=== PATIENT | female | born 1945 | race African-American/Black ===

== ENCOUNTER 2019-02-28 18:34 | Inpatient (IN) | payer MEDICARE ==
[2019-02-28] MEDS ORDERED: NS 0.9% 1000 ML** 1,000 ML IV ONE (19:13)
[2019-02-28] MEDS ORDERED: Acetaminophen TAB* 325 MG PO ONE (19:13)
[2019-02-28] MEDS ORDERED: Haloperidol INJ IV/IM* 5 MG/ML AMP IM ONE (19:14)
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
[2019-02-28] MEDS ORDERED: Haloperidol TAB* 5 MG PO ONE (19:44)
[2019-02-28] MEDS ORDERED: NS 0.9% 1000 ML** 500 ML IV ONE (19:45)
[2019-02-28 20:15] LABS: Urine Appearance Cloudy; Urine Bacteria Absent (Absent); Urine Bilirubin Negative (Negative); Urine Blood 1+ (Negative); Urine Color Yellow; Urine Glucose Negative (Negative); Urine Ketones Trace (Negative); Urine Nitrite Negative (Negative); Urine Protein Negative (Negative); Urine Red Blood Cell Trace(0-2/hpf) (Absent); Urine Specific Gravity 1.024 (1.010-1.030); Urine Squamous Epithelial Cell Present (Absent); Urine Urobilinogen Negative (Negative); Urine White Blood Cell Trace(0-5/hpf) (Absent)
[2019-02-28 20:39] LABS: Activated Partial Thrombo Time 36.6 seconds (26.0-38.0); INR 1.11 (0.82-1.09)
[2019-02-28 20:44] LABS: ABS Lymphocytes 1.1 10^3/ul (1.0-4.8); ABS Monocytes 0.5 10^3/ul (0-0.8); ABS Neutrophils 2.3 10^3/ul (1.5-7.7); Eosinophil % 0.8 %; Hematocrit 37 % (35-47); Lymphocyte % 27.2 %; Mean Corpuscular HGB Conc 33 g/dL (31-36); Mean Corpuscular Hemoglobin 26 pg (27-31); Mean Corpuscular Volume 78 fL (80-97); Mean Platelet Volume 7.9 fL (7.4-10.4); Nucleated Red Blood Cells % 0.1; Platelet Count 282 10^3/uL (150-450); Red Cell Distribution Width 14 % (10-15); White Blood Count 3.9 10^3/uL (3.5-10.8)
[2019-02-28 20:45] LABS: ALT 17 U/L (7-52); AST 16 U/L (13-39); Albumin/Globulin Ratio 1.5 (1-3); Alkaline Phosphatase 118 U/L (34-104); Anion Gap 9 mmol/L (2-11); BUN/Creatinine Ratio 41.8 (8-20); Blood Urea Nitrogen 23 mg/dL (6-24); C Reactive Protein < 1.00 mg/L (<8.01); CO2 Carbon Dioxide 25 mmol/L (22-32); Calcium 9.8 mg/dL (8.6-10.3); Chloride 109 mmol/L (101-111); EGFR African American 131.5 (>60); EGFR Non-African American 108.6 (>60); Globulin 2.7 g/dL (2-4); Glucose 79 mg/dL (70-100); Potassium 3.4 mmol/L (3.5-5.0); Sodium 143 mmol/L (135-145); Total Protein 6.7 g/dL (6.4-8.9)
[2019-02-28 20:46] LABS: Troponin I 0.01 ng/mL (<0.04)
[2019-02-28 20:48] LABS: BNP 47 pg/mL (<=100)
[2019-02-28] MEDS ORDERED: QUEtiapine TAB* 25 MG PO ONE (22:48)
[2019-02-28] MEDS ORDERED: Acetaminophen TAB* 325 MG PO PRN (22:48)
[2019-02-28 23:07] LABS: Free T4 3.37 ng/dL (0.61-1.12)
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
[2019-03-01 05:58] LABS: ABS Lymphocytes 1.3 10^3/ul (1.0-4.8); ABS Monocytes 0.6 10^3/ul (0-0.8); ABS Neutrophils 2.7 10^3/ul (1.5-7.7); Eosinophil % 0.3 %; Hematocrit 32 % (35-47); Hemoglobin 10.1 g/dL (12.0-16.0); Lymphocyte % 27.8 %; Mean Corpuscular HGB Conc 32 g/dL (31-36); Mean Corpuscular Hemoglobin 25 pg (27-31); Mean Corpuscular Volume 79 fL (80-97); Mean Platelet Volume 8.2 fL (7.4-10.4); Nucleated Red Blood Cells % 0.1; Platelet Count 251 10^3/uL (150-450); Red Blood Count 3.99 10^6 /uL (3.70-4.87); Red Cell Distribution Width 15 % (10-15); White Blood Count 4.6 10^3/uL (3.5-10.8)
[2019-03-01 06:20] LABS: Albumin 3.5 g/dL (3.2-5.2); Albumin/Globulin Ratio 1.6 (1-3); BUN/Creatinine Ratio 43.5 (8-20); Calcium 9.1 mg/dL (8.6-10.3); EGFR African American 161.6 (>60); EGFR Non-African American 133.5 (>60); Globulin 2.2 g/dL (2-4); Potassium 3.4 mmol/L (3.5-5.0); Total Bilirubin 1.5 mg/dL (0.2-1.0); Total Protein 5.7 g/dL (6.4-8.9)
[2019-03-01] MEDS: Heparin VIAL(*) 5000 UNITS/ML VIAL (FIVE THOUSAND) SUBCUT SCH ×2 (08:14→20:36)
--- NOTE | 2019-03-01 08:45 | PN ---
Progress Note - Progress Note Date of Service: 02/28/19 Note: Final CXR by radiology: IMPRESSION: 1. POSSIBLE LEFT LUNG PULMONARY NODULE AND MEDIASTINAL MASS AT THE THORACIC INLET. RECOMMEND A CT OF THE CHEST WITH CONTRAST FOR FURTHER EVALUATION. 2. NO EVIDENCE FOR ACUTE FINDING. R1F Pt. admitted to [facility]. I spoke with pt.'s nurse, Linsey, around 0800. Dr. Bryant recommends CT chest with contrast. Linsey will relay message to pt.'s attending.
[2019-03-01] MEDS ORDERED: Propranolol TAB* 10 MG PO SCH (10:00)
--- NOTE | 2019-03-01 10:38 | PN ---
Subjective Date of Service: 03/01/19 Interval History: Ms. Huggins is not aggressive but is adamant that there is nothing wrong with her and refusing examination. She is quietly scratching off lottery tickets in her room with her at the bedside. Objective Active Medications: Acetaminophen (Tylenol Tab*) 650 mg PO Q4H PRN Heparin Sodium (Porcine) (Heparin Vial(*)) 5,000 units SUBCUT Q12HR VENANCIO Methimazole (Tapazole Tab*) 10 mg PO BID VENANCIO Prednisone (Deltasone Tab*) 40 mg PO DAILY VENANCIO Propranolol HCl (Inderal Tab*) 10 mg PO BID VENANCIO Vital Signs: Temp Pulse Resp BP Pulse Ox 98.8 F 110 18 151/57 100 03/01/19 08:18 03/01/19 08:18 03/01/19 08:18 03/01/19 08:18 03/01/19 08:18 Oxygen Devices in Use Now: None Appearance: Female sitting on edge of bed in NAD Neck: - - Patient refused examination Respiratory: Symmetrical Chest Expansion and Respiratory Effort Neurological: - - Alert, refusing examination or to answer questions, appears to move all extemities equally spontaneously Result Diagrams: 03/01/19 04:56 03/01/19 04:56 Assess/Plan/Problems-Billing Assessment: Ms. Huggins is a 73 yo F with a PMH of dementia who presents with recent decline in condition with agitation and aggressive behavior found to have thyrotoxicosis. - Patient Problems (1) Thyrotoxicosis Comment: - Patient is not currently aggressive but is refusing examination, hopefully we can work with her to take oral medications - Appreciate Dr. Jurado's advice re management via phone today - Plan to start propranolol 10mg BID (may increase as needed), methimazole 10mg po BID, and prednisone 40mg daily - Thyrotropin reactive antibody (TRAb) ordered - Will call and speak with Dr. Jurado again tomorrow to update him on patient condition (2) Mediastinal mass Comment: - Noted on chest xray with recommendation for CT chest - Patient unwilling to go to CT today, will re-eval later today and tomorrow once treatments of thyrotoxicosis have had time to take effect (3) DVT prophylaxis Comment: - Heparin SQ (4) Full code status Comment: Status and Disposition: Inpatient.
[2019-03-01] MEDS ORDERED: Methimazole TAB* 5 MG PO SCH (11:00)
[2019-03-01] MEDS ORDERED: predniSONE TAB* 20 MG PO SCH ×2 (11:00→12:00)
[2019-03-01] MEDS ORDERED: Metoprolol Tartrate IV* 1 MG/ML 5 ML VIAL IV PRN (11:21)
[2019-03-01] MEDS: Methimazole TAB* 5 MG PO SCH ×2 (11:54→20:36)
[2019-03-01] MEDS ORDERED: methylPREDNISolone SOD 40 MG* 1 ML VIAL IV SCH (12:00)
[2019-03-01] MEDS: methylPREDNISolone SOD 40 MG* 1 ML VIAL IV SCH (12:08)
[2019-03-01] MEDS: Metoprolol Tartrate IV* 1 MG/ML 5 ML VIAL IV SCH ×2 (12:08→17:59)
[2019-03-02] MEDS: Metoprolol Tartrate IV* 1 MG/ML 5 ML VIAL IV SCH ×5 (00:14→23:53)
[2019-03-02] MEDS: methylPREDNISolone SOD 40 MG* 1 ML VIAL IV SCH ×3 (00:14→23:54)
[2019-03-02] MEDS ORDERED: Lorazepam PYXIS KEY PRN (00:29)
--- NOTE | 2019-03-02 00:48 | PN ---
Hospitalist Progress Note Date of Service: 03/02/19 Pt agitated, altered and attempting to leave hospital overnight Not oriented to situation or time Hx of dementia, QtC stable @ 447, favor trial of low dose Haldol x1 and if no benefit low dose Ativan for pts safety. Hemodynamically stable
[2019-03-02] MEDS: Haloperidol INJ IV/IM* 5 MG/ML AMP IV SLOW PU PRN ×2 (01:31→23:54)
[2019-03-02] MEDS: LORazepam INJ* 2 MG/ML 1 ML VIAL IV PUSH PRN (04:10)
[2019-03-02] MEDS: Heparin VIAL(*) 5000 UNITS/ML VIAL (FIVE THOUSAND) SUBCUT SCH ×2 (10:10→19:36)
[2019-03-02] MEDS: Methimazole TAB* 5 MG PO SCH ×2 (10:44→21:22)
--- NOTE | 2019-03-02 16:06 | PN ---
Subjective Date of Service: 03/02/19 Interval History: Ms. Huggins was sleeping much of the morning but is now awake, cooperative and denying complaint. Patient noted to be agitated overnight, required sedation for her safety. Objective Active Medications: Acetaminophen (Tylenol Tab*) 650 mg PO Q4H PRN Haloperidol Lactate (Haldol Inj Iv/Im*) 5 mg IV SLOW PU Q6H PRN Heparin Sodium (Porcine) (Heparin Vial(*)) 5,000 units SUBCUT Q12HR VENANCIO Lorazepam (Ativan Inj*) 1 mg IV PUSH Q6H PRN Methimazole (Tapazole Tab*) 10 mg PO BID VENANCIO Methylprednisolone Sodium Succinate (Solu-Medrol 40 Mg) 40 mg IV Q12H VENANCIO Metoprolol Tartrate (Lopressor Iv*) 5 mg IV Q6H VENANCIO Miscellaneous (Ativan Pyxis Herzog) 1 ea N/A .ATIVAN IV HERZOG PRN Vital Signs: Temp Pulse Resp BP Pulse Ox 97.8 F 87 18 121/55 99 03/02/19 10:35 03/02/19 10:35 03/02/19 10:35 03/02/19 10:35 03/02/19 10:35 Oxygen Devices in Use Now: None Appearance: Female sitting up on edge of bed in NAD Eyes: No Scleral Icterus Ears/Nose/Mouth/Throat: Mucous Membranes Moist Neck: Trachea Midline Respiratory: Symmetrical Chest Expansion and Respiratory Effort, Clear to Auscultation Cardiovascular: NL Sounds; No Murmurs; No JVD, No Edema Abdominal: NL Sounds; No Tenderness; No Distention Extremities: No Edema Skin: No Rash or Ulcers Neurological: NL Muscle Strength and Tone, - - Alert, oriented to self only Nutrition: Taking PO's Result Diagrams: 03/01/19 04:56 03/01/19 04:56 Microbiology and Other Data: . Assess/Plan/Problems-Billing Assessment: Ms. Huggins is a 73 yo F with a PMH of dementia who presents with recent decline in condition with agitation and aggressive behavior found to have thyrotoxicosis. - Patient Problems (1) Thyrotoxicosis Comment: - Patient was agitated overnight and required sedation for safety, but pleasant and cooperative for now - Tachycardia resolved - Appreciate Dr. Jurado's advice re management - Patient is resistent to taking pills so plan to continue metoprolol IV, solumedrol IV with methimazole 10mg po BID (patient has been able to take this crushed in ice cream) - Thyrotropin reactive antibody (TRAb) ordered (2) Mediastinal mass Comment: - Noted on chest xray with recommendation for CT chest - Will defer plan for further imaging until Dr. Jurado's consult as patient's refusal to cooperate with exams makes it unlikely she would tolerate lying still for CT today. Recommend reconsidering as her condition improves (3) DVT prophylaxis Comment: - Heparin SQ (4) Full code status Comment: Status and Disposition: Inpatient.
[2019-03-02] MEDS ORDERED: Iohexol 300* (CONTRAST) 10 ML SDV IV ONE (16:42)
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
[2019-03-03] MEDS: Metoprolol Tartrate IV* 1 MG/ML 5 ML VIAL IV SCH (06:30)
--- NOTE | 2019-03-03 08:46 | PN ---
Subjective Date of Service: 03/03/19 Interval History: Ms. Huggins is feeling fine today. She is not sure why she is in the hospital. She denies CP, SOB, N/V. Appetite is good. She continuously repeats that she has "never had these problems before" and cannot comprehend her diagnosis. She is asking to leave, but is following direction. No concerns from nursing. Family History: Unchanged from Admission Social History: Unchanged from Admission Past Medical History: Unchanged from Admission Objective Active Medications: Acetaminophen (Tylenol Tab*) 650 mg PO Q4H PRN FEVER/PAIN Haloperidol Lactate (Haldol Inj Iv/Im*) 5 mg IV SLOW PU Q6H PRN AGITATION Heparin Sodium (Porcine) (Heparin Vial(*)) 5,000 units SUBCUT Q12HR [facility] Lorazepam (Ativan Inj*) 1 mg IV PUSH Q6H PRN ANXIETY Methimazole (Tapazole Tab*) 10 mg PO BID [facility] Propranolol HCl (Inderal Tab*) 80 mg PO BID [facility] Vital Signs - 8 hr 03/03/19 06:35 Temperature 98.2 F Pulse Rate 79 Respiratory 16 Rate Blood Pressure 102/44 (mmHg) O2 Sat by Pulse 100 Oximetry Oxygen Devices in Use Now: None Appearance: Elderly female sitting in chair in NAD Eyes: No Scleral Icterus Ears/Nose/Mouth/Throat: Mucous Membranes Moist Neck: NL Appearance and Movements; NL JVP, Trachea Midline Respiratory: Symmetrical Chest Expansion and Respiratory Effort, Clear to Auscultation Cardiovascular: NL Sounds; No Murmurs; No JVD, RRR Abdominal: NL Sounds; No Tenderness; No Distention Extremities: No Edema Skin: No Rash or Ulcers Neurological: - - Oriented to self Lines/Tubes/Other Access: Clean, Dry and Intact Peripheral IV Nutrition: Taking PO's Result Diagrams: 03/01/19 04:56 03/01/19 04:56 Assess/Plan/Problems-Billing Assessment: Ms. Huggins is a 73 yo F with a PMH of dementia who presents with recent decline in condition with agitation and aggressive behavior found to have thyrotoxicosis. - Patient Problems (1) Thyrotoxicosis Code(s): E05.90 - THYROTOXICOSIS, UNSP WITHOUT THYROTOXIC CRISIS OR STORM Comment: - Tachycardia and agitation resolved - Appreciate Endocrine consult; recommend propranolol instead of metoprolol - Thyrotropin reactive antibody (TRAb) ordered - D/c metoprolol, Solu-Medrol - Continue methimazole; start propranolol per Endocrinology (2) Dementia Code(s): F03.90 - UNSPECIFIED DEMENTIA WITHOUT BEHAVIORAL DISTURBANCE Comment : - Supportive care (3) DVT prophylaxis Comment: - Heparin SQ (4) Full code status Code(s): Z78.9 - OTHER SPECIFIED HEALTH STATUS Comment: Status and Disposition: Inpatient. Anticipate d/c home when medically stable. Attending: Radha Oconnor
[2019-03-03] MEDS: Heparin VIAL(*) 5000 UNITS/ML VIAL (FIVE THOUSAND) SUBCUT SCH ×2 (09:43→20:02)
[2019-03-03] MEDS: Propranolol TAB* 80 MG PO SCH ×2 (09:52→20:02)
[2019-03-03] MEDS: Methimazole TAB* 5 MG PO SCH ×2 (09:52→20:02)
[2019-03-03] MEDS: LORazepam INJ* 2 MG/ML 1 ML VIAL IV PUSH PRN (20:02)
[2019-03-04 06:09] LABS: ABS Lymphocytes 2.1 10^3/ul (1.0-4.8); ABS Monocytes 0.5 10^3/ul (0-0.8); ABS Neutrophils 2.8 10^3/ul (1.5-7.7); Eosinophil % 0.6 %; Hematocrit 33 % (35-47); Hemoglobin 10.8 g/dL (12.0-16.0); Lymphocyte % 38.5 %; Mean Corpuscular HGB Conc 33 g/dL (31-36); Mean Corpuscular Hemoglobin 26 pg (27-31); Mean Corpuscular Volume 78 fL (80-97); Mean Platelet Volume 7.9 fL (7.4-10.4); Platelet Count 284 10^3/uL (150-450); Red Blood Count 4.23 10^6 /uL (3.70-4.87); Red Cell Distribution Width 14 % (10-15); White Blood Count 5.6 10^3/uL (3.5-10.8)
[2019-03-04 09:00] LABS: Free T4 1.86 ng/dL (0.61-1.12)
[2019-03-04] MEDS: Propranolol TAB* 80 MG PO SCH ×2 (09:10→20:49)
[2019-03-04] MEDS: Methimazole TAB* 5 MG PO SCH ×2 (09:10→20:50)
[2019-03-04] MEDS: Heparin VIAL(*) 5000 UNITS/ML VIAL (FIVE THOUSAND) SUBCUT SCH ×2 (09:16→20:49)
[2019-03-04 09:35] LABS: Albumin 3.6 g/dL (3.2-5.2); Anion Gap 7 mmol/L (2-11); CO2 Carbon Dioxide 29 mmol/L (22-32); Calcium 9.4 mg/dL (8.6-10.3); Chloride 109 mmol/L (101-111); Potassium 3.5 mmol/L (3.5-5.0); Sodium 145 mmol/L (135-145)
[2019-03-04 09:41] LABS: ALT 18 U/L (7-52); AST 12 U/L (13-39); Albumin/Globulin Ratio 1.7 (1-3); Alkaline Phosphatase 95 U/L (34-104); BUN/Creatinine Ratio 52.6 (8-20); Blood Urea Nitrogen 30 mg/dL (6-24); EGFR African American 126.2 (>60); EGFR Non-African American 104.3 (>60); Globulin 2.1 g/dL (2-4); Glucose 95 mg/dL (70-100); Total Protein 5.7 g/dL (6.4-8.9)
--- NOTE | 2019-03-04 11:06 | PN ---
Subjective Date of Service: 03/04/19 Interval History: Ms. Huggins is feeling ok today. She offers no complaints. She denies CP, SOB, N/V /D, dizziness. Up ambulating independently in room. is at bedside. He is aware of the plan for biopsy today. No concerns from nursing. Family History: Unchanged from Admission Social History: Unchanged from Admission Past Medical History: Unchanged from Admission Objective Active Medications: Acetaminophen (Tylenol Tab*) 650 mg PO Q4H PRN FEVER/PAIN Haloperidol Lactate (Haldol Inj Iv/Im*) 5 mg IV SLOW PU Q6H PRN AGITATION Heparin Sodium (Porcine) (Heparin Vial(*)) 5,000 units SUBCUT Q12HR [facility] Lorazepam (Ativan Inj*) 1 mg IV PUSH Q6H PRN ANXIETY Methimazole (Tapazole Tab*) 10 mg PO BID [facility] Propranolol HCl (Inderal Tab*) 80 mg PO BID [facility] Vital Signs - 8 hr 03/04/19 03/04/19 04:39 07:42 Temperature 97.2 F 98.8 F Pulse Rate 84 87 Respiratory 18 16 Rate Blood Pressure 128/59 143/79 (mmHg) O2 Sat by Pulse 98 98 Oximetry Oxygen Devices in Use Now: None Appearance: Elderly female standing in room in NAD Eyes: No Scleral Icterus Ears/Nose/Mouth/Throat: Mucous Membranes Moist Neck: NL Appearance and Movements; NL JVP, Trachea Midline Respiratory: Symmetrical Chest Expansion and Respiratory Effort, Clear to Auscultation Cardiovascular: NL Sounds; No Murmurs; No JVD, RRR Abdominal: NL Sounds; No Tenderness; No Distention Extremities: No Edema Skin: No Rash or Ulcers Neurological: - - Oriented to self Lines/Tubes/Other Access: Clean, Dry and Intact Peripheral IV Result Diagrams: 03/05/19 05:14 03/05/19 05:14 Assess/Plan/Problems-Billing Assessment: Ms. Huggins is a 73 yo F with a PMH of dementia who presents with recent decline in condition with agitation and aggressive behavior found to have thyrotoxicosis. - Patient Problems (1) Thyrotoxicosis Code(s): E05.90 - THYROTOXICOSIS, UNSP WITHOUT THYROTOXIC CRISIS OR STORM Comment: - Tachycardia and agitation resolved - Appreciate Endocrine consult; recommend propranolol instead of metoprolol - Thyrotropin reactive antibody (TRAb) ordered - Thyroid biopsy today to determine surgical course - Continue methimazole, propranolol (2) Anemia Code(s): D64.9 - ANEMIA, UNSPECIFIED Comment: - Microcytic, hypochromic - Suspect iron deficiency; iron studies pending - Will start ferrous sulfate if necessary (3) Dementia Code(s): F03.90 - UNSPECIFIED DEMENTIA WITHOUT BEHAVIORAL DISTURBANCE Comment : - Supportive care (4) DVT prophylaxis Comment: - Heparin SQ (5) Full code status Code(s): Z78.9 - OTHER SPECIFIED HEALTH STATUS Comment: Status and Disposition: Inpatient. Anticipate d/c home when medically stable, timeframe unknown. Attending: Radha Oconnor
[2019-03-04] MEDS: LORazepam INJ* 2 MG/ML 1 ML VIAL IV PUSH PRN (13:21)
[2019-03-04 14:03] LABS: % Iron Saturation 16 % (15-55); Iron 41 ug/dL (50-212); Total Iron Binding Capacity 258 mcg/dL (250-450); Transferrin 184 mg/dL (203-362)
[2019-03-04 14:18] LABS: Ferritin 210.8 ng/mL (11-307)
[2019-03-04] MEDS: Haloperidol INJ IV/IM* 5 MG/ML AMP IV SLOW PU PRN (18:05)
[2019-03-05] MEDS: Propranolol TAB* 80 MG PO SCH ×2 (00:31→09:24)
[2019-03-05] MEDS: Methimazole TAB* 5 MG PO SCH ×2 (00:31→09:24)
[2019-03-05 05:46] LABS: ABS Eosinophils 0.1 10^3/ul (0-0.6); ABS Lymphocytes 1.5 10^3/ul (1.0-4.8); ABS Monocytes 0.3 10^3/ul (0-0.8); ABS Neutrophils 2.3 10^3/ul (1.5-7.7); Eosinophil % 1.7 %; Hematocrit 36 % (35-47); Hemoglobin 11.8 g/dL (12.0-16.0); Lymphocyte % 35.2 %; Mean Corpuscular HGB Conc 33 g/dL (31-36); Mean Corpuscular Hemoglobin 26 pg (27-31); Mean Corpuscular Volume 78 fL (80-97); Mean Platelet Volume 7.7 fL (7.4-10.4); Nucleated Red Blood Cells % 0.1; Platelet Count 294 10^3/uL (150-450); Red Blood Count 4.61 10^6 /uL (3.70-4.87); Red Cell Distribution Width 14 % (10-15); White Blood Count 4.3 10^3/uL (3.5-10.8)
[2019-03-05 06:03] LABS: Albumin 3.3 g/dL (3.2-5.2); Albumin/Globulin Ratio 1.4 (1-3); BUN/Creatinine Ratio 38.2 (8-20); Calcium 9.1 mg/dL (8.6-10.3); EGFR African American 131.5 (>60); EGFR Non-African American 108.6 (>60); Globulin 2.4 g/dL (2-4); Potassium 3.5 mmol/L (3.5-5.0); Total Bilirubin 1.5 mg/dL (0.2-1.0); Total Protein 5.7 g/dL (6.4-8.9)
[2019-03-05] MEDS: LORazepam INJ* 2 MG/ML 1 ML VIAL IV PUSH PRN (09:26)
[2019-03-05] MEDS: Heparin VIAL(*) 5000 UNITS/ML VIAL (FIVE THOUSAND) SUBCUT SCH (09:30)
[2019-03-05 11:49] VITALS: BP 105/63
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
== END 2019-03-05 13:30 | disposition home or self-care (01) | DRG 643 ==
LOC: ED 18:34 → MED 22:48
PROVIDERS: ADMIT Internal Medicine; ATTEND Internal Medicine
PROC: 0GBG3ZX Excision of Left Thyroid Gland Lobe, Percutaneous Approach, Diagnostic (ICD-10-PCS; principal; 2019-03-04)
DX: E05.90 Thyrotoxicosis, unspecified without thyrotoxic crisis or storm (principal); J98.59 Other diseases of mediastinum, not elsewhere classified; F05 Delirium due to known physiological condition; F03.90 Unspecified dementia, unspecified severity, without behavioral disturbance, psychotic disturbance, mood disturbance, and anxiety; Z96.651 Presence of right artificial knee joint; R50.9 Fever, unspecified; D50.9 Iron deficiency anemia, unspecified; E07.89 Other specified disorders of thyroid; Z91.83 Wandering in diseases classified elsewhere; Z82.0 Family history of epilepsy and other diseases of the nervous system; Z87.891 Personal history of nicotine dependence; Z72.89 Other problems related to lifestyle
CPT/HCPCS: 10005; 36415; 70450; 71046; 71260; 80053; 81003; 81015; 82140; 82728; 83520; 83540; 83550; 83605; 83880; 84439; 84443; 84479; 84481; 84484; 85025; 85610; 85730; 86140; 87040; 87086; 88172; 88173; 93005; 99283; A9270-GY; G8978-GP-CI; G8979-GP-CI; G8980-GP-CI; J1630; J1644; J2060; J2920; J3490; J7512; Q9967

== ENCOUNTER 2019-05-20 05:56 | Inpatient (IN) | payer MEDICARE ==
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
[2019-05-20 07:00] LABS: ABS Lymphocytes 1.1 10^3/ul (1.0-4.8); ABS Monocytes 0.8 10^3/ul (0-0.8); ABS Neutrophils 5.9 10^3/ul (1.5-7.7); Eosinophil % 0.3 %; Hematocrit 36 % (35-47); Hemoglobin 11.9 g/dL (12.0-16.0); Mean Corpuscular HGB Conc 33 g/dL (31-36); Mean Corpuscular Hemoglobin 27 pg (27-31); Mean Corpuscular Volume 81 fL (80-97); Mean Platelet Volume 7.5 fL (7.4-10.4); Platelet Count 276 10^3/uL (150-450); Red Blood Count 4.42 10^6 /uL (3.70-4.87); Red Cell Distribution Width 14 % (10-15); White Blood Count 7.9 10^3/uL (3.5-10.8)
[2019-05-20 07:22] LABS: Albumin 3.9 g/dL (3.2-5.2); Albumin/Globulin Ratio 1.6 (1-3); BUN/Creatinine Ratio 46.9 (8-20); Calcium 9.5 mg/dL (8.6-10.3); EGFR African American 150.2 (>60); EGFR Non-African American 124.1 (>60); Globulin 2.5 g/dL (2-4); Potassium 3.4 mmol/L (3.5-5.0); Total Bilirubin 1.4 mg/dL (0.2-1.0); Total Protein 6.4 g/dL (6.4-8.9)
[2019-05-20] MEDS ORDERED: Iohexol 300* (CONTRAST) 10 ML SDV IV ONE (07:52)
[2019-05-20 08:18] LABS: Free T3 9.6 pg/mL (2.5-3.9)
[2019-05-20 08:19] LABS: Free T4 3.45 ng/dL (0.61-1.12)
[2019-05-20] MEDS ORDERED: LORazepam TAB(*) 1 MG PO ONE (10:01)
[2019-05-20] MEDS ORDERED: LORazepam INJ* 2 MG/ML 1 ML VIAL IM ONE (10:11)
[2019-05-20] MEDS ORDERED: Lorazepam PYXIS KEY PRN ×2 (10:11→10:19)
[2019-05-20] MEDS ORDERED: Lorazepam PYXIS KEY ONE (10:15)
[2019-05-20] MEDS ORDERED: Metoprolol Tartrate IV* 1 MG/ML 5 ML VIAL IV PRN (10:20)
[2019-05-20] MEDS ORDERED: Enoxaparin(*) 40 MG/0.4 ML SYR SUBCUT SCH (11:00)
--- NOTE | 2019-05-20 12:04 | HP ---
CC: Dr. Kun Sampson; Dr. Lyndon Jurado * HISTORY AND PHYSICAL: DATE OF ADMISSION: 05/20/19 PRIMARY CARE PROVIDER: 1. Kun Sampson MD 2. Lyndon Jurado MD ATTENDING PHYSICIAN: Gloria Garber MD * (dictated by JENAE Riley). CHIEF COMPLAINT: Altered mental status. HISTORY OF PRESENT ILLNESS: Ms. Huggins is a 73-year-old female with a past medical history of hyperthyroidism, dementia, who presented to the ER today escorted by police after she was found walking around the streets. She has a recent history of thyrotoxicosis wherein she was admitted to the hospital from 02/28/19 to 03/05/19. At that time, she had delirium. A thyroid nodule was noted on imaging. Thyroid fine needle aspiration was performed and revealed a benign thyroid nodule. Dr. Jurado was consulted regarding this and recommended methimazole and atenolol, which the patient was discharged home with. He recommended close follow up with him as well as Dr. Rich for total thyroidectomy. On 03/18/19, the patient followed up with Dr. Jurado, who continued her home medications. On 03/24/19, she had an appointment scheduled with Dr. Rich. At that time, she refused to enter the office and was noted to be saying that she did not have a problem with her thyroid. She did not remember recent hospitalization. Ultimately, she did not attend the appointment. At the beginning of April, she had a followup appointment with Dr. Jurado and her medications methimazole and atenolol were continued. She was noted to be somewhat paranoid and untrusting during this visit. She refused further diagnostic procedures offered. Again, total thyroidectomy was recommended and the patient was suggested to see Dr. Rich for surgical evaluation. Today, the patient was escorted to the ER by police. She was noted to be wandering the streets prior to the police picking her up. She is an unreliable historian and is currently mildly agitated and paranoid. She does not respond to questioning. According to ER staff and providers, the patient's notes that the patient has not been taking her medications. She states she takes them when "she needs them." In discussion with the [id number] and , the patient is being given her pills, but she is not taking them. Pndnugkc-au-cus states that she finds the medications throughout the house. In the ER, the patient is noted to have a TSH of 0 and an elevated free T3 and free T4. EKG shows 88 heart rate and normal sinus rhythm. Chest x-ray without acute findings, there is noted tracheal deviation secondary to left thyroid lobe mass, which was noted on CT on 03/02/19. Hospitalist team was asked to further evaluate the patient for admission. PAST MEDICAL HISTORY: 1. Hyperthyroidism. 2. History of thyrotoxicosis and delirium with hospital admission on 02/28/19 to 03/05/19. 3. Benign left thyroid nodule. 4. Dementia. PAST SURGICAL HISTORY: Right knee, right hip. HOME MEDICATIONS: 1. Methimazole 10 mg p.o. daily. 2. Atenolol 25 mg p.o. daily. It is noted that the patient has not been regularly taking her home medications. DRUG ALLERGIES: No known drug allergies. FAMILY HISTORY: Family history obtained from chart review. Mother and siblings , Alzheimer's. Mother from complications of Alzheimer's. SOCIAL HISTORY: The patient is a former smoker. According to chart review, she does drink alcohol, a few beers on the weekend. She lives with her . REVIEW OF SYSTEMS: A review of systems was attempted, but the patient is unable to participate. PHYSICAL EXAMINATION GENERAL: Ms. Huggins is a well-developed, well-nourished, thin 73-year-old black woman who is pacing around her room. She is paranoid and agitated. She is attempting to leave her room. VITAL SIGNS: Temperature 98.4 temporal, heart rate 99, respiratory rate 18, oxygen saturation 97% on room air, blood pressure 155/88. HEENT: PERRL. EOMI. Nonicteric sclerae. Hearing is grossly intact. Oral mucous membranes are moist and without lesions. The pharynx is clear. NECK: With full range of motion. There is a palpable mass on the left side of the thyroid. No lymphadenopathy. RESPIRATORY: Symmetrical chest expansion without use of accessory muscles. Lungs clear to auscultation. There are no rhonchi, wheezes, or rubs. There is mildly diminished breath sounds. CARDIOVASCULAR: Regular rate and rhythm with S1, S2 present without murmurs, rubs, clicks, or gallops. There is no JVD. There is no peripheral edema. Radial and pedal pulses are palpable. ABDOMEN: Flat, thin. Bowel sounds noted in all quadrants. The abdomen is soft. There is no tenderness to palpation. There is no noted hepatosplenomegaly. MUSCULOSKELETAL: The patient has full range of motion without pain or deformities. She has a steady gait without impairment. NEURO: The patient is awake. She is alert. She is oriented to self only. Unable to assess cranial nerves as the patient is not cooperating with requests. She is able to move all of her extremities. DIAGNOSTIC STUDIES/LAB DATA: 1. Potassium 3.4, total bilirubin 1.40, TSH 0.00, free T4 of 3.45, free T3 of 9.60. 2. Chest x-ray, impression: No evidence for acute findings. Tracheal deviation secondary to mass in the left thyroid lobe noted on the prior CT of the chest study. 3. ECG, rate 88, normal sinus rhythm, ND within normal limits. ASSESSMENT AND PLAN: Ms. Huggins is a 73-year-old female with a past medical history of hyperthyroidism with recent history of thyrotoxicosis and delirium, benign thyroid nodule, dementia, who presented to the ER today escorted by police after being found walking in the streets. The patient will be admitted inpatient for: 1. Altered mental status. The patient has a history of admission in February for altered mental status, which was found to be due to thyrotoxicosis. Family reported that she has not been taking her prescribed medications. The patient is agitated and therefore, a difficult historian. She currently has a TSH measuring 0 and an elevated free T4 and T3. It is likely that she is experiencing another episode of thyrotoxicosis. She is agitated and paranoid at this point in time. She has been given 1 mg IM lorazepam in the ER. Dr. Lyndon Jurado has been consulted for further recommendations. In the meantime, the patient will be placed on metoprolol 5 IV q.6 hours for symptomatic treatment as well as Ativan 0.5 mg IV q.4 hours for agitation. The current plan is to continue methimazole once the patient is willing to take p.o. medications. We will await further recommendations from Dr. Lyndon Jurado. It is noted that in the past the patient was suggested to have total thyroidectomy with Dr. Rich. She refused to see Dr. Rich on her 03/24/19 appointment. She may need to undergo thyroidectomy while in the hospital. 2. Hyperthyroidism. Please see above. We will resume the patient's methimazole once she is willing to take oral medications. We will give metoprolol 5 mg IV q.6 hours for heart rate control. Dr. Lyndon Jurado has been consulted. 3. DVT prophylaxis. According to DVT Risk Assessment, the patient scores 2, placing her at moderate risk. She will be started on Lovenox. 4. Code status: Full code. TIME SPENT: Approximately 60 minutes was spent on this admission, greater than half that time was spent [id number] with the patient obtaining history, performing physical and reviewing the plan of care. The case has been reviewed with my attending, Dr. Garber, who is in agreement with the plan of care. JENAE WHITE [id number]/CPS #: [id number] LAUREANO
--- NOTE | 2019-05-20 12:08 | CONSULT ---
Consult Consult: [facility] Inpatient Consult Note Date of Consult: 05/20/19 Reason for Consult: hyperthyroidism Reason for Admission: altered mental status ASSESSMENT: 73 yo F with baseline dementia and chronic hyperthyroidism. 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 Autoimmune (Gra[place]) thyroiditis has been excluded by antibody testing and malignancy has been excluded by FNA. Unfortunately, she has failed medical management of hyperthyroidism and has failed to attend outpatient follow-up for thyroidectomy , which is recommended for definitive treatment of hyperthyroidism. The etiology of her dementing illness remains unclear, although it is likely that thyrotoxicosis is contributing to her altered mental status. PLAN: - restart methimazole 10mg BID - order iodine uptake and scan this admission, if possible - consult surgery for thyroidectomy - consult psychiatry for mental status exam and capacity evaluation SUBJECTIVE: History of Present Illness: 73 yo F with baseline dementia and hyperthyroidism, now admitted for AMS in setting of thyrotoxicosis and multinodular goiter. Patient is an unreliable historian; history was obtained from chart and patient , when possible. See prior consult noted dated 03/01/19 for details. Briefly, she has a long history of hyperthyroidism and was admitted in February 2019 due to threatening behavior. Thyroid ultrasound at that time showed MNG and she had a negative biopsy of the LEFT nodule. Since then, the patient has been unwilling to undergo diagnostic procedures (iodine scan) outside of the hospital. She has been suspicious and untrusting of her and her caregivers. At the last clinic visit with me in March 2019, we had a lengthy discussion regarding her thyroid condition and treatment. Total thyroidectomy was recommended, but she would not consent to any procedure to treat her thyroid condition, stating that to me that she did not believe that she had this condition. I recommended that she resume methimazole, but she had been unwilling to take this at home. She was referred to Dr. Rich for surgical evaluation, but did not keep this appointment. On the day of admission, the patient was escorted to the ER by police, who found her disoriented in [place] in agitated, paranoid state. She refused to be interviewed by police or ED staff. Past Medical History: - dementia, unknown type - hyperthyroidism, presumably toxic MNG - h/o knee replacement Medications Prior to Admission: [not taking as of March 2019, per ] Atenolol TAB* [Tenormin TAB* 25 MG] 25 mg PO DAILY #30 tab 03/05/19 [Rx Confirmed 05/20/19] Methimazole TAB* [Tapazole TAB*] 10 mg PO DAILY #60 tab 03/05/19 [Rx Confirmed 05/20/19] Inpatient Medications: Enoxaparin Sodium (Lovenox(*)) 40 mg SUBCUT Q24H VENANCIO Lorazepam (Ativan Inj*) 0.5 mg IV PUSH Q4H PRN PRN Reason: Anxiety, agitation Metoprolol Tartrate (Lopressor Iv*) 5 mg IV Q6H PRN PRN Reason: HR > 80 Miscellaneous (Ativan Pyxis Herzog) 1 ea N/A .ATIVAN IV HERZOG PRN PRN Reason: PYXIS HERZOG Miscellaneous (Ativan Pyxis Herzog) 1 ea N/A .ATIVAN IV HERZOG PRN PRN Reason: PYXIS HERZOG Allergies/Intolerances: NKDA Social History: Lives with . Former smoker. No substance abuse, including alcohol. Family History: non-contributory or not available Review of Systems: As above. OBJECTIVE: Temp Pulse Resp BP Pulse Ox 98.4 F 99 18 143/87 98 05/20/19 11:04 05/20/19 11:04 05/20/19 11:04 05/20/19 11:04 05/20/19 11:04 General: sedated, minimally arousable ENT: neck supple, moderate thyromegaly on L, no bruit is heard Chest: CTAB, no wheezing or crackles CV: RRR @ 90 BPM, no murmur Abdomen: soft, non-tender Extremities: no edema, distal pulses intact Skin: warm, dry, no rash Neuro: grossly intact motor/sensory in extremities Psych: restricted affect, pleasant Labs: WBC 7.9 10^3/uL (3.5-10.8) 05/20/19 06:55 RBC 4.42 10^6 /uL (3.70-4.87) 05/20/19 06:55 Hgb 11.9 g/dL (12.0-16.0) L 05/20/19 06:55 Hct 36 % (35-47) 05/20/19 06:55 MCV 81 fL (80-97) 05/20/19 06:55 MCH 27 pg (27-31) 05/20/19 06:55 MCHC 33 g/dL (31-36) 05/20/19 06:55 RDW 14 % (10-15) 05/20/19 06:55 Plt Count 276 10^3/uL (150-450) 05/20/19 06:55 MPV 7.5 fL (7.4-10.4) 05/20/19 06:55 Neut % (Auto) 75.7 % 05/20/19 06:55 Lymph % (Auto) 14.0 % 05/20/19 06:55 [place] % (Auto) 9.6 % 05/20/19 06:55 Eos % (Auto) 0.3 % 05/20/19 06:55 Baso % (Auto) 0.4 % 05/20/19 06:55 Absolute Neuts (auto) 5.9 10^3/ul (1.5-7.7) 05/20/19 06:55 Absolute Lymphs (auto) 1.1 10^3/ul (1.0-4.8) 05/20/19 06:55 Absolute Monos (auto) 0.8 10^3/ul (0-0.8) 05/20/19 06:55 Absolute Eos (auto) 0.0 10^3/ul (0-0.6) 05/20/19 06:55 Absolute Basos (auto) 0.0 10^3/ul (0-0.2) 05/20/19 06:55 Absolute Nucleated RBC 0.0 10^3/ul 05/20/19 06:55 Nucleated RBC % 0.0 05/20/19 06:55 Sodium 141 mmol/L (135-145) 05/20/19 06:55 Potassium 3.4 mmol/L (3.5-5.0) L 05/20/19 06:55 Chloride 107 mmol/L (101-111) 05/20/19 06:55 Carbon Dioxide 29 mmol/L (22-32) 05/20/19 06:55 Anion Gap 5 mmol/L (2-11) 05/20/19 06:55 BUN 23 mg/dL (6-24) 05/20/19 06:55 Creatinine 0.49 mg/dL (0.51-0.95) L 05/20/19 06:55 Est GFR ( Amer) 150.2 (>60) 05/20/19 06:55 Est GFR (Non-Af Amer) 124.1 (>60) 05/20/19 06:55 BUN/Creatinine Ratio 46.9 (8-20) H 05/20/19 06:55 Glucose 112 mg/dL (70-100) H 05/20/19 06:55 Lactic Acid 0.9 mmol/L (0.5-2.0) 05/20/19 06:55 Calcium 9.5 mg/dL (8.6-10.3) 05/20/19 06:55 Total Bilirubin 1.40 mg/dL (0.2-1.0) H 05/20/19 06:55 AST 15 U/L (13-39) 05/20/19 06:55 ALT 13 U/L (7-52) 05/20/19 06:55 Alkaline Phosphatase 110 U/L (34-104) H 05/20/19 06:55 Troponin I 0.00 ng/mL (<0.04) 05/20/19 06:55 Total Protein 6.4 g/dL (6.4-8.9) 05/20/19 06:55 Albumin 3.9 g/dL (3.2-5.2) 05/20/19 06:55 Globulin 2.5 g/dL (2-4) 05/20/19 06:55 Albumin/Globulin Ratio 1.6 (1-3) 05/20/19 06:55 TSH 0.00 mcIU/mL (0.34-5.60) L 05/20/19 06:55 Free T4 3.45 ng/dL (0.61-1.12) H 05/20/19 06:55 Free T3 9.60 pg/mL (2.5-3.9) H 05/20/19 06:55
--- NOTE | 2019-05-20 15:29 | CONSULT ---
Consult Consult: Consult for Medical Decision Making Capacity S: Psychiatry is asked to evaluate capacity in this 73 y.o. , AA female with a history of dementia and thyroid disease, currently admitted to [address] [place] [address] on the Hospitalist service for dangerous confused behavior and hyperthyroid state. According to the patient's the patient disappeared from their home early yesterday evening and was discovered by the police wandering by the side of the road and brought to the ED. According to her yyucawst-jx-wyc, Shari, who is present in her room, the patient has been increasingly difficult for the family to provide care for, has not been adherent with thyroid or other medications and can no longer be managed in the home setting. I spoke with attending nurse practitioner Valentina Jung who feels that intensive thyroid treatment, including likely thyroidectomy, followed by SNF placement is indicated, however the patient is refusing. The patient is examined in the ED and again on [facility]. She presents as calm and pleasant. She does not know where she is nor how she got here. She cannot name her medical condition nor the organ system affected. "I'm fine. I'm fine. " She is confused and confabulatory and unable to state what risks might reasonably arise if she refuses indicated treatment. O: aging AA female with several bracelets and necklaces laying in hospital bed; fair grooming, cooperative but confabulating; euthymic mood with a full affect; denies SI or HI; insight and judgment poor given insistence on leaving; awake and alert; disoriented to place time and situation; patient has clear deficits in immediate and delayed recall as well as attention and command following. Poor fund of knowledge and cannot identify current [place] president. A/P: Capacity: During our interaction, Mrs. Huggins failed to demonstrate a reasonable understanding of her illness, the recommended treatment or the associated risks of refusing said treatment. In my judgment, she lacks the capacity to make an informed decision about diagnostic or treatment interventions related to her thyroid condition, including surgical removal of the gland. She similarly fails to demonstrate capacity related to refusing SNF placement, which the family is requesting. Capacity is subject to change in these situations and psychiatry can be re-consulted in the event of any significant changes in her presentation/situation. I have discussed my opinion with the patient, her tgpsevuo-bk-hye Deidre and the attending hospitalist, Valentina Jung. Thank you for the consult.
[2019-05-20] MEDS: Methimazole TAB* 5 MG PO SCH (21:46)
[2019-05-21] MEDS: LORazepam INJ* 2 MG/ML 1 ML VIAL IV PUSH PRN ×2 (03:04→20:01)
[2019-05-21 07:05] LABS: ABS Eosinophils 0.1 10^3/ul (0-0.6); ABS Lymphocytes 1.4 10^3/ul (1.0-4.8); ABS Monocytes 0.6 10^3/ul (0-0.8); ABS Neutrophils 2.6 10^3/ul (1.5-7.7); Eosinophil % 1.7 %; Hematocrit 34 % (35-47); Hemoglobin 11.4 g/dL (12.0-16.0); Lymphocyte % 29.6 %; Mean Corpuscular HGB Conc 34 g/dL (31-36); Mean Corpuscular Hemoglobin 27 pg (27-31); Mean Corpuscular Volume 81 fL (80-97); Nucleated Red Blood Cells % 0.2; Platelet Count 250 10^3/uL (150-450); Red Blood Count 4.16 10^6 /uL (3.70-4.87); Red Cell Distribution Width 14 % (10-15); White Blood Count 4.6 10^3/uL (3.5-10.8)
[2019-05-21 07:21] LABS: Calcium 9.1 mg/dL (8.6-10.3); EGFR African American 153.8 (>60); EGFR Non-African American 127.1 (>60); Potassium 3.5 mmol/L (3.5-5.0)
[2019-05-21] MEDS ORDERED: Methimazole TAB* 5 MG PO SCH (09:00)
[2019-05-21] MEDS ORDERED: Atenolol TAB* 25 MG PO SCH (09:00)
--- NOTE | 2019-05-21 09:12 | PN ---
Subjective Date of Service: 05/21/19 Interval History: No overnight issues noted. VS good, heart rate well controlled at 80-90s Noted ethical issues involved in this case, and plan for op this adm Objective Active Medications: Enoxaparin Sodium (Lovenox(*)) 40 mg SUBCUT 1800 VENANCIO Lorazepam (Ativan Inj*) 0.5 mg IV PUSH Q4H PRN PRN Reason: Anxiety, agitation Last Admin: 05/21/19 03:04 Dose: 0.5 mg Methimazole (Tapazole Tab*) 10 mg PO BID VENANCIO Last Admin: 05/20/19 21:46 Dose: 10 mg Metoprolol Tartrate (Lopressor Iv*) 5 mg IV Q6H PRN PRN Reason: HR > 80 Miscellaneous (Ativan Pyxis Marmolejo) 1 ea N/A .ATIVAN IV MARMOLEJO PRN PRN Reason: PYXIS MARMOLEJO Miscellaneous (Ativan Pyxis Marmolejo) 1 ea N/A .ATIVAN IV MARMOLEJO PRN PRN Reason: PYXIS MARMOLEJO Vital Signs - 8 hr 05/21/19 05/21/19 05/21/19 03:04 03:15 04:00 Temperature 98.5 F Pulse Rate 84 Respiratory 20 16 16 Rate Blood Pressure 120/70 (mmHg) O2 Sat by Pulse 100 Oximetry Oxygen Devices in Use Now: None Exam: General - NAD Eyes - PERRLA, EOM intact HEENT- enlarged neck, left thyroid nodule palpated Lymph Nodes - No lymphadenopathy Cardiovascular - RRR no m/r/g, no JVD, no carotid bruits Lungs - Clear to auscltation, no use of acessory muscles, no crackles or wheezes. Skin - No rashes, skin warm and dry, no erythematous areas Abdomen - Normal bowel sounds, abdomen soft and nontender Extremeties - No edema, cyanosis or clubbing Musculo Skeletal - 5/5 strength, normal range of motion, no swollen or erythematous joints. Neurological Alert, CN 2-12 grossly intact. Result Diagrams: 05/21/19 06:40 05/21/19 06:40 Assess/Plan/Problems-Billing Assessment: 73 y/o female with history of advanced dementia, hyperthyrodism admitted for altered mental status and hyperthyroidism due to left thyroid nodule which is currently not in thyroitoxicosis. Thyroidectomy is planned during this admission. - Patient Problems (1) Hyperthyroidism Current Visit: Yes Status: Acute Code(s): E05.90 - THYROTOXICOSIS, UNSP WITHOUT THYROTOXIC CRISIS OR STORM SNOMED Code(s): 07423107 Comment: Plan for thyroidectomy next Tues Iodine uptake tomorrow methimazole for now, however pt is not compliant (2) Delirium Current Visit: No Status: Acute Code(s): R41.0 - DISORIENTATION, UNSPECIFIED SNOMED Code(s): 5159747 Comment: underlying dementia with hyperthyroidism leading to further delirium 1:1 observation for now (3) Dementia Current Visit: No Status: Acute Code(s): F03.90 - UNSPECIFIED DEMENTIA WITHOUT BEHAVIORAL DISTURBANCE SNOMED Code(s): 25896338 (4) DVT prophylaxis Current Visit: No Status: Acute Code(s): TWB9332 - SNOMED Code(s): 586078176 Comment: - Heparin SQ (5) Full code status Current Visit: No Status: Acute Code(s): Z78.9 - OTHER SPECIFIED HEALTH STATUS SNOMED Code(s): 130881495 Comment: Status and Disposition: Inpatient medicine. Attestation Documenting Resident: Louise Byrd Supervising Physician: Micheal Poe Attestation: This service has been performed in part by a resident under the direction of a teaching physician.I, Micheal Poe, performed the service, or was physically present during the critical, or marmolejo portions of the service, furnished by the resident. I participated in the management of the patient.
[2019-05-21] MEDS: Methimazole TAB* 5 MG PO SCH ×3 (09:42→20:01)
--- NOTE | 2019-05-21 16:07 | CONS ---
CONSULTATION REPORT: DATE OF CONSULT: 05/21/19 SERVICE: General Surgery. ATTENDING SURGEON: Elizabeth Rich MD. REQUESTING PROVIDER: Dr. Lyndon Jurado, Dr. Byrd, and Dr. Jose E Poe. REASON FOR CONSULTATION: Thyrotoxicosis requiring total versus hemithyroidectomy. HISTORY OF PRESENT ILLNESS: Ms. Huggins is a 73-year-old female with a history of hyperthyroidism and thyrotoxicosis, early onset dementia, who presented to the emergency room with the police after being found wandering through the streets. She has a recent history of an episode of thyrotoxicosis, for which she was admitted to the hospital in February 2019. At the time, she was delirious and noted to be hyperthyroid and have altered mental status. Therefore a workup was performed that included a chest CT that identified a large left thyroid nodule. She underwent FNA biopsy, which showed benign thyroid cells. Her TSH was undetectable at the time and the patient was started on methimazole and atenolol by Dr. Jurado and she was discharged home. She was planned to follow up with myself as an outpatient to discuss performing a total thyroidectomy versus a hemithyroidectomy; however, on the day of the scheduled appointment the patient refused to leave the car despite her 's insistence and therefore left. She has since followed up with Dr. Jurado, but she has been very suspicious of medical personnel and also intermittently refuses to take her medications. She also refused further diagnostic procedures. Of note, the majority of this history of present illness is obtained from medical records as the patient does not recall why she is in the hospital or that she she has a new thyroid disorder. Upon admission, she was found to have a TSH again of 0, and given that her thyrotoxicosis and hyperthyroidism thought to contribute significantly to her altered mental status and dementia, it was recommended by Dr. Jurado that she undergo an urgent thyroidectomy. PAST MEDICAL HISTORY: Hyperthyroidism, thyrotoxicosis, delirium, multinodular goiter, dementia. PAST SURGICAL HISTORY: Right knee and right hip surgery. MEDICATIONS: 1. Methimazole 10 mg p.o. daily. 2. Atenolol 25 mg p.o. daily. ALLERGIES: No known drug allergies. FAMILY HISTORY: By chart review, the patient's family has Alzheimer's in her mother and other siblings. SOCIAL HISTORY: The patient is a former smoker. She lives with her . REVIEW OF SYSTEMS: Unable to be obtained. PHYSICAL EXAM: Vital Signs: Temperature is 98.5, pulse is 92, respiratory rate is 16, O2 sats 100% on room air, blood pressure is 127/54. General: A malnourished appearing very thin woman, sitting up comfortably in a chair, in no apparent distress, conversing easily and pleasantly. HEENT: Normocephalic, atraumatic. Palpable left thyroid nodule that is soft. Cardiovascular: Increased rate, regular rhythm. Respiratory: Clear to auscultation bilaterally. Abdomen: Soft, nontender, nondistended. Extremities: No edema. DIAGNOSTIC STUDIES/LAB DATA: White blood cell count is 4.6, hemoglobin is 11.4 , hematocrit is 34, platelets are 250. Sodium is 144, potassium is 3.5, chloride is 111, CO2 is 29, BUN is 24, creatinine is 0.48, glucose is 102. Labs from yesterday showed TSH of 0, free T4 of 3.45, and free T3 is 9.6. Imaging: Thyroid ultrasound on 05/21/19 shows the right thyroid lobe measures 46 x 21 x 16 mm and the left thyroid lobe is 63 x 36 x 41 mm. The right upper lobe nodule is 18 x 10 x 9 mm. It is a complex, cystic and solid nodule. The right mid thyroid nodule is 11 x 5 x 10 mm. It is a solid nodule with some cystic change. Right lower nodule is 5 x 5 x 26 mm and is a cyst. A complex, cystic, and solid nodule replacing a majority of the left thyroid lobe, is 53 x 35 x 37 mm and appears unchanged from prior study when it was biopsied. ASSESSMENT AND PLAN: Ms. Huggins is a 73-year-old female with hyperthyroidism and dementia thought to be exacerbated by thyrotoxicosis. She was determined by psychiatry to lack of capacity to make medical decisions based on her dementia. The patient appears to have some element of frontotemporal lobe dementia given that she is able to converse easily and appropriately; however, she is highly suspicious, noncompliant with medications, has poor recall of events in her life as well as her medical conditions and is intermittently combative. An ethics consultation was obtained yesterday by Dr. Jurado, and it was determined that even if the patient verbally refuses, it would be medically appropriate for the patient to undergo a kortney or a total thyroidectomy given that it may significantly improve her manic symptoms, given that she does not have capacity to make her medical decisions. Performing a thyroidectomy for a likely toxic adenoma or diffuse thyrotoxicosis will be beneficial and perhaps even help reverse some of the severity of her dementia. I have reviewed this case, the imaging studies, and discussed the patient with Dr. Jurado. The patient has a very large left thyroid nodule, but also has multiple nodules on the right side. 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 A thyroid uptake scan could help determine if there is laterality or diffuse thyrotoxicosis. The surgical options would be to do a total thyroidectomy versus doing a hemithyroidectomy if a toxic adenoma were localized to either the right or left side. The benefits of doing a total thyroidectomy would be to avoid having to undergo a completion thyroidectomy in the future if she continues to have hyperthyroidism and to avoid having to follow the right sided nodules. However, the patient is clearly noncompliant with medications and taking Synthroid regularly may be difficult for her to do. Furthermore with a total thyroidectomy, there is a small risk for permanent hypoparathyroidism, which would require supplemental calcium. If this were to occur, there would be no guarantee she would comply with this. Therefore, she has the potential for being permanently hypothyroid and hypoparathyroid which can be life threatening. Hemithyroidectomy would avoid immediate necessity for thyroid hormone supplementation and there would be no concern for hypoparathyroidism. However, we should definitively localize the side where the toxic adenoma is located. Given these considerations, I recommended that the patient undergo a thyroid uptake scan to help lateralize the adenoma. If it cannot be lateralized, then she may have to undergo a total thyroidectomy; however, if it can be lateralized , then we can safely proceed with doing a hemithyroidectomy on the side where the toxic adenoma is located. I have discussed these options at length with the patient and her . I discussed that the risks of surgery include, but are not limited to, bleeding, infection, injury to nearby structures including the recurrent laryngeal nerve and the possibility of permanent hypoparathyroidism with undergoing a total thyroidectomy. The patient's understands all these things. When I asked the patient today if she would be okay with undergoing surgery, she did also agree to this. A thyroid uptake scan has been ordered and it will be resulted on Sunday. Hopefully next week, we will be able to perform surgery for her. After the results from the scan returns, I will discuss an operative plan with the patient's , who is her medical decision maker. [id number]/[facility] #: [id number] MTDD
[2019-05-21] MEDS: Enoxaparin(*) 40 MG/0.4 ML SYR SUBCUT SCH (17:44)
[2019-05-21] MEDS: Haloperidol INJ IV/IM* 5 MG/ML AMP IV SLOW PU ONE ×2 (21:56→22:10)
[2019-05-21] MEDS ORDERED: Haloperidol INJ IV/IM* 5 MG/ML AMP IM ONE (22:02)
[2019-05-22] MEDS ORDERED: QUEtiapine TAB* 25 MG PO ONE (00:30)
[2019-05-22] MEDS ORDERED: LORazepam INJ* 2 MG/ML 1 ML VIAL IM ONE (01:00)
[2019-05-22] MEDS ORDERED: Haloperidol INJ IV/IM* 5 MG/ML AMP IV SLOW PU ONE (07:05)
[2019-05-22] MEDS: LORazepam INJ* 2 MG/ML 1 ML VIAL IV PUSH PRN (07:10)
--- NOTE | 2019-05-22 09:40 | PN ---
Subjective Date of Service: 05/22/19 Interval History: Noted patient was extremely agitated overnight, multiple doses of ativan, haloperidol was given. She was hitting, biting staffs in the keys, also tried to go to other patient's room. She calmed down a bit when I saw her this morning. But she is still refusing medication. Objective Active Medications: Enoxaparin Sodium (Lovenox(*)) 40 mg SUBCUT 1800 VENANCIO Last Admin: 05/21/19 17:44 Dose: Not Given Lorazepam (Ativan Inj*) 0.5 mg IV PUSH Q4H PRN PRN Reason: Anxiety, agitation Last Admin: 05/22/19 07:10 Dose: 0.5 mg Methimazole (Tapazole Tab*) 10 mg PO BID VENANCIO Last Admin: 05/21/19 20:01 Dose: 10 mg Metoprolol Tartrate (Lopressor Iv*) 5 mg IV Q6H PRN PRN Reason: HR > 80 Miscellaneous (Ativan Pyxis Marmolejo) 1 ea N/A .ATIVAN IV MARMOLEJO PRN PRN Reason: PYXIS MARMOLEJO Miscellaneous (Ativan Pyxis Marmolejo) 1 ea N/A .ATIVAN IV MARMOLEJO PRN PRN Reason: PYXIS MARMOLEJO Vital Signs - 8 hr 05/22/19 05/22/19 05/22/19 01:51 07:10 08:25 Respiratory 18 24 20 Rate Oxygen Devices in Use Now: None Exam: Well, not in distress. Result Diagrams: 05/21/19 06:40 05/21/19 06:40 Assess/Plan/Problems-Billing Assessment: 73 y/o female with history of advanced dementia, hyperthyrodism admitted for altered mental status and hyperthyroidism due to left thyroid nodule which is currently not in thyroitoxicosis. Thyroidectomy is planned during this admission. - Patient Problems (1) Hyperthyroidism Current Visit: Yes Status: Acute Code(s): E05.90 - THYROTOXICOSIS, UNSP WITHOUT THYROTOXIC CRISIS OR STORM SNOMED Code(s): 59602739 Comment: Plan for thyroidectomy next Tu Attempted iodine uptake, but patient spilted up medication after multiple attempts. methimazole for now, however pt were refusing medication (2) Delirium Current Visit: No Status: Acute Code(s): R41.0 - DISORIENTATION, UNSPECIFIED SNOMED Code(s): 7067409 Comment: underlying dementia with hyperthyroidism leading to further delirium 1:1 observation for now psychiatry followup for management of her psy symptoms. (3) Dementia Current Visit: No Status: Acute Code(s): F03.90 - UNSPECIFIED DEMENTIA WITHOUT BEHAVIORAL DISTURBANCE SNOMED Code(s): 37813722 (4) DVT prophylaxis Current Visit: No Status: Acute Code(s): SPN4097 - SNOMED Code(s): 645379031 Comment: - Heparin SQ (5) Full code status Current Visit: No Status: Acute Code(s): Z78.9 - OTHER SPECIFIED HEALTH STATUS SNOMED Code(s): 436875848 Comment: Status and Disposition: Inpatient medicine. Attestation Documenting Resident: Louise Byrd Supervising Physician: Micheal Poe Attestation: This service has been performed in part by a resident under the direction of a teaching physician.I, Micheal Poe, performed the service, or was physically present during the critical, or marmolejo portions of the service, furnished by the resident. I participated in the management of the patient.
[2019-05-22] MEDS: Methimazole TAB* 5 MG PO SCH ×2 (11:16→19:44)
--- NOTE | 2019-05-22 12:27 | CONSULT ---
Identification - Patient Identification Reason for Psychiatric Consultation: Violent Behavior -: Patient is a 73 year old, F admitted on 05/20/19. - M[facility] Identification Employment Status: Disabled Hx Psychiatric Hospitalization: No History - Objective HPI: Psychiatry is asked to return to see Ms. Huggins due to agitation. [facility] staff indicate that she has waxing/waning sensorium with periods of agitation, aggression towards staff, eloping from her room and trying to enter peers' rooms. She is on 1:1 observations for this. Because the patient is declining oral medications and pulled her IV out, staff has needed to utilize IM medications for prn agitation, although 2mg haloperidol and 0.5mg lorazepam have had limited efficacy. On exam the patient is found with her , Jesus Huggins, sitting next to her bed. She is completely disoriented to time, place or situation. "What'goode talkin' bout me in the hospital? I'm at home. I don't go into anybody else's house!" She doesn't seem aware of her thyroid condition and states that she feels fine. When asked about taking medications she responds "Whether I take your medicine or I don't take your medicine, I feel the same...so why should I take it?" She stays in bed under her blankets for the duration of the conversation. She denies thoughts of harming herself or others. Exam Appearance: Thin Framed Hygiene: Normal Grooming: Fairly Well Kept Psychomotor Activities: Normal Exhibits Abnormal Movement: No Attitude and Relatedness: Regressed Eye Contact: Poor - Speech Quality: Unpressured Latencies: Normal Quantity: Terse Patient's Decription of Mood: "Fine" Observed Affect: Labile Affect Consistent with: Dysphoria Patient's Thought Process: Disorganized Thought Content: No Passive Wish, No Suicidal Planning, No Homicidal Ideation, No Paranoid Ideation Experiencing Hallucinations: No, Sensorium is Clear Type of Hallucinations: Visual: No, Auditory: No, Command: No Level of Consciousness: Alert Orientation: No Intact, No Orientated to Time, No Orientated to Place, No Orientated to Person Impulse Control: Poor Insight and Judgement: Impaired Impression - Impression Clinical Impression: 73 y.o. , AA female with a history of dementia and hyperthyroidism presents with recent worsening of confused, dangerous behavior in the setting of thyrotoxicosis. She awaits either full or partial thyroidectomy and has already been determined to lack capacity for this. Merits Inpatient Hospitalization: No BSU: Problem List - Patient Problems (1) Moderate neurocognitive disorder Current Visit: Yes Status: Acute Priority: High Code(s): QOP5806 - SNOMED Code(s): 041362804 Plan - Treatment Plan Treatment Plan: The patient requires medication to reduce violent behavior. We will order scheduled quetiapine 25mg PO qhs and continue haloperidol 2mg IM q4h for agitation. I will also increase lorazepam to 1mg IM q6h for this. This clinician is going off service until May 27, however, the psychiatric service will continue to co-manage her until my return. Continued Medication Management: Start Medication Medications: Current Medications Enoxaparin Sodium (Lovenox(*)) 40 mg SUBCUT 1800 VENANCIO Last Admin: 05/21/19 17:44 Dose: Not Given Lorazepam (Ativan Inj*) 0.5 mg IV PUSH Q4H PRN PRN Reason: Anxiety, agitation Last Admin: 05/22/19 07:10 Dose: 0.5 mg Methimazole (Tapazole Tab*) 10 mg PO BID VENANCIO Last Admin: 05/22/19 11:16 Dose: Not Given Metoprolol Tartrate (Lopressor Iv*) 5 mg IV Q6H PRN PRN Reason: HR > 80 Miscellaneous (Ativan Pyxis Herzog) 1 ea N/A .ATIVAN IV HERZOG PRN PRN Reason: PYXIS HERZOG Miscellaneous (Ativan Pyxis Herzog) 1 ea N/A .ATIVAN IV HERZOG PRN PRN Reason: PYXIS HERZOG
[2019-05-22] MEDS ORDERED: LORazepam INJ* 2 MG/ML 1 ML VIAL IV PUSH PRN (12:39)
--- NOTE | 2019-05-22 16:26 | PN ---
Progress Note - Progress Note Date of Service: 05/22/19 Note: Endocrinology Follow-Up Note ASSESSMENT: 73 yo F with dementia and toxic multinodular goiter presenting with altered mental status and mild thyrotoxicosis. The case has been discussed with patient, family members and care team (Drs. Rich and Carson). While surgery is preferred for most patients with compressive or obstructive goiters, the risks of permanent hypothyroidism or transient hypoparathyroidism may be too high in this patient who is unable to comply with medication therapy. In addition, we have been unable to perform diagnostic iodine scan to properly image the thyroid and determine the extent of surgery (kortney- vs total thyroidectomy). Therefore, I recommend radioactive iodine therapy at an empiric dose of 20mCi. This dose is at the upper end of the 2016 BARRERA guidelines for this condition, yet carriers a lower risk of permanent hypothyroidism than surgery. It can also be repeated in 6-12 months if hyperthyroidism recurs. PLAN: - I-131 20mCi once this admission (prescription to be sent to nuclear medicine tomorrow, 05/23/19) - patient may be discharged to home with standard I-131 precautions: - avoid sharing cups or utensils (3 days) - avoid sleeping in the same bed others (7 days) - avoid contact with children and women (21 days) - d/c methimazole - d/c metoprolol - follow-up with monthly thyroid function tests until patient becomes hypothyroid SUBJECTIVE: Patient remains agitated and disoriented. Thyroid ultrasound done yesterday, but she refused to take I-131 for uptake and scan. Endocrine surgery (Dr. Rich) has seen patient to discuss therapeutic options. Psychiatry has been reconsulted for assistance with agitation. Enoxaparin Sodium (Lovenox(*)) 40 mg SUBCUT 1800 [facility] Last Admin: 05/21/19 17:44 Dose: Not Given Haloperidol Lactate (Haldol Inj Iv/Im*) 2 mg IM Q4H PRN PRN Reason: AGITATION Lorazepam (Ativan Inj*) 1 mg IV PUSH Q6H PRN PRN Reason: Anxiety, agitation Methimazole (Tapazole Tab*) 10 mg PO BID [facility] Last Admin: 05/22/19 11:16 Dose: Not Given Metoprolol Tartrate (Lopressor Iv*) 5 mg IV Q6H PRN PRN Reason: HR > 80 Miscellaneous (Ativan Pyxis Herzog) 1 ea N/A .ATIVAN IV HERZOG PRN PRN Reason: PYXIS HERZOG Quetiapine Fumarate (Seroquel Tab*) 25 mg PO BEDTIME VENANCIO OBJECTIVE: Temp Pulse Resp BP Pulse Ox 97.9 F 83 20 116/71 96 05/22/19 11:32 05/22/19 11:32 05/22/19 11:32 05/22/19 11:32 05/22/19 11:32 General: awake, alert, disoriented, mild agitation ENT: neck supple, moderate thyromegaly on L Chest: CTAB, no wheezing or crackles CV: RRR @ 80 BPM, no murmur Abdomen: soft, non-tender Skin: warm, dry, no rash Neuro: ambulatory Psych: perseverative WBC 4.6 10^3/uL (3.5-10.8) 05/21/19 06:40 RBC 4.16 10^6 /uL (3.70-4.87) 05/21/19 06:40 Hgb 11.4 g/dL (12.0-16.0) L 05/21/19 06:40 Hct 34 % (35-47) L 05/21/19 06:40 MCV 81 fL (80-97) 05/21/19 06:40 MCH 27 pg (27-31) 05/21/19 06:40 MCHC 34 g/dL (31-36) 05/21/19 06:40 RDW 14 % (10-15) 05/21/19 06:40 Plt Count 250 10^3/uL (150-450) 05/21/19 06:40 MPV 8.0 fL (7.4-10.4) 05/21/19 06:40 Neut % (Auto) 56.6 % 05/21/19 06:40 Lymph % (Auto) 29.6 % 05/21/19 06:40 Schley % (Auto) 11.9 % 05/21/19 06:40 Eos % (Auto) 1.7 % 05/21/19 06:40 Baso % (Auto) 0.2 % 05/21/19 06:40 Absolute Neuts (auto) 2.6 10^3/ul (1.5-7.7) 05/21/19 06:40 Absolute Lymphs (auto) 1.4 10^3/ul (1.0-4.8) 05/21/19 06:40 Absolute Monos (auto) 0.6 10^3/ul (0-0.8) 05/21/19 06:40 Absolute Eos (auto) 0.1 10^3/ul (0-0.6) 05/21/19 06:40 Absolute Basos (auto) 0.0 10^3/ul (0-0.2) 05/21/19 06:40 Absolute Nucleated RBC 0.0 10^3/ul 05/21/19 06:40 Nucleated RBC % 0.2 05/21/19 06:40 Sodium 144 mmol/L (135-145) 05/21/19 06:40 Potassium 3.5 mmol/L (3.5-5.0) 05/21/19 06:40 Chloride 111 mmol/L (101-111) 05/21/19 06:40 Carbon Dioxide 29 mmol/L (22-32) 05/21/19 06:40 Anion Gap 4 mmol/L (2-11) 05/21/19 06:40 BUN 24 mg/dL (6-24) 05/21/19 06:40 Creatinine 0.48 mg/dL (0.51-0.95) L 05/21/19 06:40 Est GFR ( Amer) 153.8 (>60) 05/21/19 06:40 Est GFR (Non-Af Amer) 127.1 (>60) 05/21/19 06:40 BUN/Creatinine Ratio 50.0 (8-20) H 05/21/19 06:40 Glucose 102 mg/dL (70-100) H 05/21/19 06:40 Lactic Acid 0.9 mmol/L (0.5-2.0) 05/20/19 06:55 Calcium 9.1 mg/dL (8.6-10.3) 05/21/19 06:40 Total Bilirubin 1.40 mg/dL (0.2-1.0) H 05/20/19 06:55 AST 15 U/L (13-39) 05/20/19 06:55 ALT 13 U/L (7-52) 05/20/19 06:55 Alkaline Phosphatase 110 U/L (34-104) H 05/20/19 06:55 Troponin I 0.00 ng/mL (<0.04) 05/20/19 06:55 Total Protein 6.4 g/dL (6.4-8.9) 05/20/19 06:55 Albumin 3.9 g/dL (3.2-5.2) 05/20/19 06:55 Globulin 2.5 g/dL (2-4) 05/20/19 06:55 Albumin/Globulin Ratio 1.6 (1-3) 05/20/19 06:55 TSH 0.00 mcIU/mL (0.34-5.60) L 05/20/19 06:55 Free T4 3.45 ng/dL (0.61-1.12) H 05/20/19 06:55 Free T3 9.60 pg/mL (2.5-3.9) H 05/20/19 06:55
--- NOTE | 2019-05-22 16:41 | PN ---
Progress Note - Progress Note Date of Service: 05/22/19 Note: Surgery Progress Note Events from today noted. Patient refused radio-iodine pill for the thyroid uptake scan this morning despite multiple attempts by the hospitalists, nurses and nuclear medicine staff to convince her to consume the pill. I have discussed the treatment options at length again with Dr. Jurado. In light of the fact that patient has multinodular goiter, there is no way of being certain which nodule may be the toxic since the patient is refusing a thyroid uptake scan. Although we suspect the large 5cm left nodule is the toxic adenoma, it is very possible that she still may be hyperthyroid after performing a left hemithyroidectomy. The alternative of performing a total thyroidectomy carries the risk of untreated permanent hypothyroidism and possible hypoparathyroidism if the patient continues to be noncompliant with medications. (Per her , and since being in the hospital, she refuses almost all oral medications or has to be coaxed). In discussion with Dr. Jurado, he plans to proceed with radioiodine ablation in the hope that it may not make her permanently hypoparathyroid, and carries less inherent risk and uncertainty than surgery in this complex patient. I discussed this with the patient and her again today. Please feel free to call surgery back if we can be of any help.
[2019-05-22] MEDS: Enoxaparin(*) 40 MG/0.4 ML SYR SUBCUT SCH (17:13)
[2019-05-22] MEDS: Haloperidol INJ IV/IM* 5 MG/ML AMP IM PRN (18:28)
[2019-05-22] MEDS: QUEtiapine TAB* 100 MG PO SCH (19:44)
[2019-05-23] MEDS: Methimazole TAB* 5 MG PO SCH (08:00)
--- NOTE | 2019-05-23 10:26 | CONSULT ---
Consult Consult: Consult Reason: Follow up for agitation and capacity S: Patient was seen for a follow on this 73 year old Female. She continues to be confused and doesnt not remember what her providers told her about her procedure. Her was at her bedside and mentioned that she has been confused and forgetful. She currently is sitting in bed not combative or aggressive.. O: 73 year old Female. Dressed in patient gown, calm , cooperative. Euthymic affect. Poverty of content. No delusions or preoccupations. Denied suicidal ideation, intent or plan. She denied homicidal ideation intent or plan. No perceptual disturbances. Insight and judgment poor. She is not aware of the name of current location, month, day and year or current president. A/P: Behavioral disturbance - 73 y.o. , AA female with a history of dementia and hyperthyroidism presents with recent worsening of confused, dangerous behavior in the setting of thyrotoxicosis. DX: Neuro-cognitive disorder severe. # Patient currently in behavioral control and showed adequate response to recent modification in treatment. # Patient continues to lack capacity. # For behavioral control continue quetiapine 25mg PO qhs, haloperidol 2mg IM q4h for agitation, and lorazepam to 1mg IM q6h #Continue 1:1 #Patient can not leave AMA # Psychiatry will continue to follow Blake Croft M.D. # [id number] Sodium 144 mmol/L (135-145) 05/21/19 06:40 Potassium 3.5 mmol/L (3.5-5.0) 05/21/19 06:40 BUN 24 mg/dL (6-24) 05/21/19 06:40 Creatinine 0.48 mg/dL (0.51-0.95) L 05/21/19 06:40 Calcium 9.1 mg/dL (8.6-10.3) 05/21/19 06:40 AST 15 U/L (13-39) 05/20/19 06:55 ALT 13 U/L (7-52) 05/20/19 06:55
[2019-05-23] MEDS: Enoxaparin(*) 40 MG/0.4 ML SYR SUBCUT SCH (17:42)
--- NOTE | 2019-05-23 18:39 | PN ---
Subjective Date of Service: 05/23/19 Interval History: Patient continued to be confused today, but less combative. However she is still uncooperative in medication taking. Talked to mirror finishing machine operator Dr. Jurado and nuclear medicine, understand that radioiodine iodine ablation cannot be done inpatient. Alternative options of doing in [place] or do palliative left thyroidectomy needs to be discussed with surgeon and family. Objective Active Medications: Enoxaparin Sodium (Lovenox(*)) 40 mg SUBCUT 1800 [facility] Last Admin: 05/23/19 17:42 Dose: Not Given Haloperidol Lactate (Haldol Inj Iv/Im*) 2 mg IM Q4H PRN PRN Reason: AGITATION Last Admin: 05/22/19 18:28 Dose: 2 mg Lorazepam (Ativan Inj*) 1 mg IM Q6H PRN PRN Reason: Anxiety, agitation Methimazole (Tapazole Tab*) 10 mg PO BID [facility] Last Admin: 05/23/19 08:00 Dose: 10 mg Metoprolol Tartrate (Lopressor Iv*) 5 mg IV Q6H PRN PRN Reason: HR > 80 Miscellaneous (Ativan Pyxis Marmolejo) 1 ea N/A .ATIVAN IV MARMOLEJO PRN PRN Reason: PYXIS MARMOLEJO Quetiapine Fumarate (Seroquel Tab*) 25 mg PO BEDTIME [facility] Last Admin: 05/22/19 19:44 Dose: 25 mg Vital Signs - 8 hr 05/23/19 15:28 Temperature 98.1 F Pulse Rate 96 Respiratory 16 Rate Blood Pressure 138/66 (mmHg) O2 Sat by Pulse 99 Oximetry Oxygen Devices in Use Now: None Exam: General: calm and dressed in gown, more cooperative. Heart: normal S1S2 Lung: clear Abdomen: soft, non tender Extremity: no swelling HEENT: normal Psy:no suicidal ideation, mood ok Result Diagrams: 05/21/19 06:40 05/21/19 06:40 Assess/Plan/Problems-Billing Assessment: 73 y/o female with history of advanced dementia, hyperthyrodism not compliant to medication due to paranoid status, admitted for altered mental status probably exacerbated by hyperthyroidism without treatment. - Patient Problems (1) Hyperthyroidism Current Visit: Yes Status: Acute Code(s): E05.90 - THYROTOXICOSIS, UNSP WITHOUT THYROTOXIC CRISIS OR STORM SNOMED Code(s): 45950187 Comment: Refused to take methimazole outpatient due to her mental status Initially planned for surgery inpatient, however unable to get iodine uptake test completed due to her mental status, thus abortted as she would require buttermaker continuous churn replacement which she couldn't be compliant Planned for radioactive iodine ablation however not feasible due to pratical reasons. Pending plan, need discussion with surgeron and family. (2) Delirium Current Visit: No Status: Acute Code(s): R41.0 - DISORIENTATION, UNSPECIFIED SNOMED Code(s): 6415402 Comment: underlying dementia with hyperthyroidism leading to further delirium 1:1 observation for now psychiatry followup for management of her psy symptoms. (3) Dementia Current Visit: No Status: Acute Code(s): F03.90 - UNSPECIFIED DEMENTIA WITHOUT BEHAVIORAL DISTURBANCE SNOMED Code(s): 07637345 (4) DVT prophylaxis Current Visit: No Status: Acute Code(s): LJV1271 - SNOMED Code(s): 067180366 Comment: - Heparin SQ (5) Full code status Current Visit: No Status: Acute Code(s): Z78.9 - OTHER SPECIFIED HEALTH STATUS SNOMED Code(s): 864303626 Comment: Status and Disposition: Inpatient medicine. Discharge if not planning for surgery. Attestation Documenting Resident: Louise Byrd Supervising Physician: Jose E Poe Attestation: This service has been performed in part by a resident under the direction of a teaching physician.I, Jose E Poe, performed the service, or was physically present during the critical, or marmolejo portions of the service, furnished by the resident. I participated in the management of the patient.
[2019-05-23] MEDS: Haloperidol INJ IV/IM* 5 MG/ML AMP IM PRN (19:20)
[2019-05-23] MEDS: QUEtiapine TAB* 100 MG PO SCH (21:31)
[2019-05-24] MEDS: Methimazole TAB* 5 MG PO SCH ×3 (01:20→19:26)
--- NOTE | 2019-05-24 11:07 | PN ---
Subjective Date of Service: 05/24/19 Interval History: Patient has no complaints. She was agitated this AM. Her granddaughter calmed her down. Her garnett room worker visited. She is refusing assessments, meds. Took pills yesterday. Family History: Unchanged from Admission Social History: Unchanged from Admission Past Medical History: Unchanged from Admission Objective Active Medications: Enoxaparin Sodium (Lovenox(*)) 40 mg SUBCUT 1800 [facility] Last Admin: 05/23/19 17:42 Dose: Not Given Haloperidol Lactate (Haldol Inj Iv/Im*) 2 mg IM Q4H PRN PRN Reason: AGITATION Last Admin: 05/23/19 19:20 Dose: 2 mg Lorazepam (Ativan Inj*) 1 mg IM Q6H PRN PRN Reason: Anxiety, agitation Methimazole (Tapazole Tab*) 10 mg PO BID [facility] Last Admin: 05/24/19 10:04 Dose: Not Given Metoprolol Tartrate (Lopressor Iv*) 5 mg IV Q6H PRN PRN Reason: HR > 80 Quetiapine Fumarate (Seroquel Tab*) 25 mg PO BEDTIME [facility] Last Admin: 05/23/19 21:31 Dose: 25 mg Vital Signs - 8 hr 05/24/19 10:12 Temperature 36.3 C Pulse Rate 102 Respiratory 14 Rate Blood Pressure 121/64 (mmHg) O2 Sat by Pulse 99 Oximetry Oxygen Devices in Use Now: None Appearance: walking in room, cooperative Neck: - - LT thyroid nodule Cardiovascular: NL Sounds; No Murmurs; No JVD Abdominal: NL Sounds; No Tenderness; No Distention Extremities: No Edema Neurological: - - oriented to self Lines/Tubes/Other Access: Clean, Dry and Intact Peripheral IV Nutrition: Taking PO's Result Diagrams: 05/21/19 06:40 05/21/19 06:40 Assess/Plan/Problems-Billing Assessment: 73 y/o female with history of advanced dementia, hyperthyroidism not compliant to medication due to paranoid status, admitted for altered mental status probably exacerbated by hyperthyroidism without treatment. - Patient Problems (1) Thyrotoxicosis Current Visit: Yes Status: Acute Priority: High Code(s): E05.90 - THYROTOXICOSIS, UNSP WITHOUT THYROTOXIC CRISIS OR STORM SNOMED Code(s): 46101743 Comment: - Tachycardia and agitation improved - Continue methimazole, PRN IV metoprolol - Dr. Rich not planning kortney-thyroidectomy, or total thyroidectomy because of uncertainty re which lobe is hyperfunctioning, and likely need for long-term L- thyroxine - Patient has not complied with radioactive iodine test for uptake. - Best option for treatment is radio-iodine ablation. We have only capsules at this hospital, patient must have liquid form. - Will work on transfer to hospital with liquid I-131, endocrine consult, and radiation/nuclear medicine. (2) Moderate neurocognitive disorder Current Visit: Yes Status: Acute Priority: Medium Code(s): [id number] - SNOMED Code(s): 798276083 Comment: -psychiatry consult appreciated -She does not have capacity, cannot leave AMA -Continue seroquel, prn haldol, ativan (3) DVT prophylaxis Current Visit: No Status: Acute Priority: Low Code(s): WSZ0176 - SNOMED Code(s): 375771050 Comment: - ambulation Status and Disposition: Inpatient medicine. Working on transfer to [facility]
[2019-05-24] MEDS: Enoxaparin(*) 40 MG/0.4 ML SYR SUBCUT SCH (17:17)
[2019-05-24] MEDS: QUEtiapine TAB* 100 MG PO SCH (19:25)
[2019-05-24] MEDS: Haloperidol INJ IV/IM* 5 MG/ML AMP IM PRN (20:08)
[2019-05-25] MEDS: Methimazole TAB* 5 MG PO SCH ×2 (08:30→20:29)
--- NOTE | 2019-05-25 15:48 | PN ---
Subjective Date of Service: 05/25/19 Interval History: Pt is more calm and compliant this morning, took pills of methemazole both yesteday and today. Updated pt's in the room , plan of getting her medication for hyperthyroidism, but it gets complicated due to unavailable and her fluctuating mental status. Otherwise, she is well, no complains. Objective Active Medications: Enoxaparin Sodium (Lovenox(*)) 40 mg SUBCUT 1800 [facility] Last Admin: 05/24/19 17:17 Dose: Not Given Haloperidol Lactate (Haldol Inj Iv/Im*) 2 mg IM Q4H PRN PRN Reason: AGITATION Last Admin: 05/24/19 20:08 Dose: 2 mg Lorazepam (Ativan Inj*) 1 mg IM Q6H PRN PRN Reason: Anxiety, agitation Methimazole (Tapazole Tab*) 10 mg PO BID [facility] Last Admin: 05/25/19 08:30 Dose: 10 mg Metoprolol Tartrate (Lopressor Iv*) 5 mg IV Q6H PRN PRN Reason: HR > 80 Miscellaneous (Ativan Pyxis Marmolejo) 1 ea N/A .ATIVAN IV MARMOLEJO PRN PRN Reason: PYXIS MARMOLEJO Quetiapine Fumarate (Seroquel Tab*) 25 mg PO BEDTIME [facility] Last Admin: 05/24/19 19:25 Dose: 25 mg Vital Signs - 8 hr 05/25/19 05/25/19 08:00 08:02 Temperature 98.5 F 98.5 F Pulse Rate 81 81 Respiratory 16 16 Rate Blood Pressure 121/61 121/61 (mmHg) O2 Sat by Pulse 98 98 Oximetry Oxygen Devices in Use Now: None Exam: General - NAD, sitting up in bed, well groomed and in nightgown Eyes - PERRLA, EOM intact HEENT- left thyroid nodule Cardiovascular - RRR no m/r/g, no JVD, no carotid bruits Lungs - Clear to auscltation, no use of acessory muscles, no crackles or wheezes. Skin - No rashes, skin warm and dry, no erythematous areas Abdomen - Normal bowel sounds, abdomen soft and nontender Extremeties - No edema, cyanosis or clubbing Musculo Skeletal - 5/5 strength, normal range of motion, no swollen or erythematous joints. Neurological Alert and oriented x 3, CN 2-12 grossly intact. Psychiatry-anxiety Result Diagrams: 05/21/19 06:40 05/21/19 06:40 Assess/Plan/Problems-Billing Assessment: 73 y/o female with history of advanced dementia, hyperthyroidism not compliant to medication due to paranoid status, admitted for altered mental status probably exacerbated by hyperthyroidism without treatment. - Patient Problems (1) Hyperthyroidism Current Visit: Yes Status: Acute Code(s): E05.90 - THYROTOXICOSIS, UNSP WITHOUT THYROTOXIC CRISIS OR STORM SNOMED Code(s): 08689080 Comment: Refused to take methimazole outpatient due to her mental status Initially planned for surgery inpatient, however unable to get iodine uptake test completed due to her mental status, thus abortted as she would require termite treater replacement which she couldn't be compliant Planned for radioactive iodine ablation however not feasible due to pratical reasons. Now plan to transfer her to [place] for LEMA (2) Delirium Current Visit: No Status: Acute Code(s): R41.0 - DISORIENTATION, UNSPECIFIED SNOMED Code(s): 9281220 Comment: underlying dementia with hyperthyroidism and depression leading to further delirium 1:1 observation for now - resolving psychiatry followup for management of her psy symptoms. (3) Dementia Current Visit: No Status: Acute Code(s): F03.90 - UNSPECIFIED DEMENTIA WITHOUT BEHAVIORAL DISTURBANCE SNOMED Code(s): 32062202 Comment: background dementia backgound (4) DVT prophylaxis Current Visit: No Status: Acute Priority: Low Code(s): SEQ3045 - SNOMED Code(s): 406109890 Comment: - ambulation (5) Full code status Current Visit: No Status: Acute Code(s): Z78.9 - OTHER SPECIFIED HEALTH STATUS SNOMED Code(s): 903663256 Comment: Status and Disposition: Inpatient medicine. [facility] Document[facility] Resident: Louise Byrd Supervising Physician: Jose E Poe Attestation: This service has been performed in part by a resident under the direction of a teaching physician.I, Jose E Poe, performed the service, or was physically present during the critical, or marmolejo portions of the service, furnished by the resident. I participated in the management of the patient.
[2019-05-25] MEDS: Enoxaparin(*) 40 MG/0.4 ML SYR SUBCUT SCH (17:18)
[2019-05-25] MEDS: Haloperidol INJ IV/IM* 5 MG/ML AMP IM PRN (17:34)
--- NOTE | 2019-05-25 19:51 | PN ---
Progress Note - Progress Note Date of Service: 05/25/19 Note: Saw patient yesterday and today. Yesterday she was in the hallway just standing and appeared pleasant but disoriented. There was no behavioral disturbances observed or reported by her 1: 1 staff. Today she was by the nurses station with few nursing staffs and security officers who were trying to redirect her to her room as reportedly she was wandering into other patients' rooms pushing past staffs. However, finally she walked back to her room with one of the officers and was talking to him nonsensically. At that time we decided not to give her PRN Haldol as per previous psych. consult. Plan is to continue to help the medical team to manage the patient's psychiatric needs on a regular basis. Please understand the limitations on anti-psychotics use for patients with Dementia. Limit the use of anti-psychotic for behavioral distubances rather keep the patient engaged or distracted. I will recommend one additional PRN dose of Seroquel only for uncontrolable agitation / aggression. Wandering usually is manageable by frequent redirections. Please consider transfering patient to a specialized nursing facility capable of dealing with Dementia patients after medical clearance.
[2019-05-25] MEDS: QUEtiapine TAB* 100 MG PO SCH (20:29)
[2019-05-26] MEDS: Methimazole TAB* 5 MG PO SCH ×2 (08:27→20:51)
[2019-05-26] MEDS ORDERED: QUEtiapine TAB* 25 MG PO PRN (14:01)
--- NOTE | 2019-05-26 14:08 | PN ---
Subjective Date of Service: 05/27/19 Interval History: Pt is pleasant today, no complains. Noted she took medication since yesterday. She was unable to repeat the information we just told her, Verbalizing no one told her these. Objective Active Medications: Enoxaparin Sodium (Lovenox(*)) 40 mg SUBCUT 1800 [facility] Last Admin: 05/25/19 17:18 Dose: Not Given Haloperidol Lactate (Haldol Inj Iv/Im*) 2 mg IM Q4H PRN PRN Reason: AGITATION Last Admin: 05/24/19 20:08 Dose: 2 mg Lorazepam (Ativan Inj*) 1 mg IM Q6H PRN PRN Reason: Anxiety, agitation Methimazole (Tapazole Tab*) 10 mg PO BID [facility] Last Admin: 05/26/19 08:27 Dose: 10 mg Metoprolol Tartrate (Lopressor Iv*) 5 mg IV Q6H PRN PRN Reason: HR > 80 Miscellaneous (Ativan Pyxis Marmolejo) 1 ea N/A .ATIVAN IV MARMOLEJO PRN PRN Reason: PYXIS MARMOLEJO Quetiapine Fumarate (Seroquel Tab*) 25 mg PO BEDTIME [facility] Last Admin: 05/25/19 20:29 Dose: 25 mg Vital Signs - 8 hr 05/26/19 05/26/19 08:00 12:53 Temperature 98.5 F 98.5 F Pulse Rate 81 104 Respiratory 16 18 Rate Blood Pressure 122/58 134/60 (mmHg) O2 Sat by Pulse 99 100 Oximetry Oxygen Devices in Use Now: None Exam: General - NAD, sitting up in bed, well groomed and in nightgown Eyes - PERRLA, EOM intact HEENT- left thyroid nodule Cardiovascular - RRR no m/r/g, no JVD, no carotid bruits Lungs - Clear to auscltation, no use of acessory muscles, no crackles or wheezes. Skin - No rashes, skin warm and dry, no erythematous areas Abdomen - Normal bowel sounds, abdomen soft and nontender Extremeties - No edema, cyanosis or clubbing Musculo Skeletal - 5/5 strength, normal range of motion, no swollen or erythematous joints. Neurological Alert and oriented x 3, CN 2-12 grossly intact. Psychiatry-calm, not anxious Result Diagrams: 05/21/19 06:40 05/21/19 06:40 Assess/Plan/Problems-Billing Assessment: 73 y/o female with history of advanced dementia, hyperthyroidism not compliant to medication due to paranoid status, admitted for altered mental status probably exacerbated by hyperthyroidism without treatment. - Patient Problems (1) Hyperthyroidism Current Visit: Yes Status: Acute Code(s): E05.90 - THYROTOXICOSIS, UNSP WITHOUT THYROTOXIC CRISIS OR STORM SNOMED Code(s): 10462939 Comment: Refused to take methimazole outpatient due to her mental status Initially planned for surgery inpatient, however unable to get iodine uptake test completed due to her mental status, thus abortted as she would require usp replacement which she couldn't be compliant Planned for radioactive iodine ablation however not feasible due to pratical reasons. Now plan to transfer her to [place] for LEMA or retry inpatient LEMA here (2) Delirium Current Visit: No Status: Acute Code(s): R41.0 - DISORIENTATION, UNSPECIFIED SNOMED Code(s): 3958686 Comment: underlying dementia with hyperthyroidism and depression leading to further delirium 1:1 observation for now resolving (3) Dementia Current Visit: No Status: Acute Code(s): F03.90 - UNSPECIFIED DEMENTIA WITHOUT BEHAVIORAL DISTURBANCE SNOMED Code(s): 12220190 Comment: Dementia for years, worsening in the past few years, which lead her to current presentation (4) DVT prophylaxis Current Visit: No Status: Acute Priority: Low Code(s): YGI5175 - SNOMED Code(s): 467065204 Comment: - ambulation (5) Full code status Current Visit: No Status: Acute Code(s): Z78.9 - OTHER SPECIFIED HEALTH STATUS SNOMED Code(s): 463538984 Comment: Status and Disposition: Inpatient medicine. Attestation Documenting Resident: Louise Byrd Supervising Physician: Javy Tyson Attending/Supervising Physician Comment: Agree with plan as outlined in Dr. Byrd's note unless indicated. Thyrotoxicosis. Would like to attempt radioactive iodine ablation but would not swallow pills. Now more cooperative and may take. Will discuss with nuclear med tomorrow prior to decision to transfer to [place] should be become available. Endocrine consult pending. Attestation: This service has been performed in part by a resident under the direction of a teaching physician.I, Javy Tyson, performed the service, or was physically present during the critical, or marmolejo portions of the service, furnished by the resident. I participated in the management of the patient.
--- NOTE | 2019-05-26 16:13 | PN ---
Progress Note - Progress Note Date of Service: 05/26/19 Note: Went to see patient and spoke to her sitter. No issues today and Mrs. Huggins has been in behavioral control.
[2019-05-26] MEDS: Enoxaparin(*) 40 MG/0.4 ML SYR SUBCUT SCH (17:52)
[2019-05-26] MEDS ORDERED: Senna TAB 8.6 mg* TAB PO PRN (18:21)
[2019-05-26] MEDS ORDERED: Docusate CAP* 100 MG PO PRN (18:22)
[2019-05-26] MEDS: QUEtiapine TAB* 100 MG PO SCH (20:51)
[2019-05-26] MEDS ORDERED: Metoprolol Tartrate TAB* 25 MG PO ONE (22:03)
[2019-05-27] MEDS: Methimazole TAB* 5 MG PO SCH ×2 (09:36→20:02)
--- NOTE | 2019-05-27 14:24 | CONSULT ---
Identification - Patient Identification Reason for Psychiatric Consultation: Incapacitating Symptoms -: Patient is a 73 year old, F admitted on 05/20/19. - MHU Identification Employment Status: Disabled Hx Psychiatric Hospitalization: No History - Objective HPI: Mrs. Huggins is seen for psychiatric follow up on , where she continues to wander at times and show irritability, although not enough so far today to justify prn medication for agitation. On exam Denise is seen along with her Jesus, who is seated beside her bed. She continues to be unable to demonstrate orientation to her circumstances, the time or place. I inquired about the potential for her to be transferred to an [facility] [place], to which she nods and says "Yes, that would be acceptable." Exam Appearance: Thin Framed Hygiene: Normal Grooming: Fairly Well Kept Psychomotor Activities: Normal Exhibits Abnormal Movement: No Attitude and Relatedness: Regressed Eye Contact: Poor - Speech Quality: Unpressured Latencies: Normal Quantity: Terse Patient's Decription of Mood: "Fine" Observed Affect: Labile Affect Consistent with: Dysphoria Patient's Thought Process: Disorganized Thought Content: No Passive Wish, No Suicidal Planning, No Homicidal Ideation, No Paranoid Ideation Experiencing Hallucinations: No, Sensorium is Clear Type of Hallucinations: Visual: No, Auditory: No, Command: No Level of Consciousness: Alert Orientation: No Intact, No Orientated to Time, No Orientated to Place, No Orientated to Person Impulse Control: Poor Insight and Judgement: Impaired Impression - Impression Clinical Impression: 73 y.o. , AA female with a history of dementia and hyperthyroidism presents with recent worsening of confused, dangerous behavior in the setting of thyrotoxicosis. She awaits either full or partial thyroidectomy and has already been determined to lack capacity for this. Merits Inpatient Hospitalization: No BSU: Problem List - Patient Problems (1) Moderate neurocognitive disorder Current Visit: Yes Status: Acute Priority: Medium Code(s): VHV1085 - SNOMED Code(s): 999076910 Comment: -psychiatry consult appreciated -She does not have capacity, cannot leave AMA -Continue seroquel, prn haldol, ativan Plan - Treatment Plan Treatment Plan: The patient is tolerating scheduled quetiapine 25mg PO qhs and can get haloperidol 2mg IM q4h or lorazepam to 1mg IM q6h for agitation. Psychiatry will continue to follow. Continued Medication Management: Start Medication Medications: Current Medications Docusate Sodium (Colace Cap*) 100 mg PO DAILY PRN PRN Reason: CONSTIPATION Last Admin: 05/26/19 20:53 Dose: 100 mg Enoxaparin Sodium (Lovenox(*)) 40 mg SUBCUT 1800 [facility] Last Admin: 05/26/19 17:52 Dose: 40 mg Haloperidol Lactate (Haldol Inj Iv/Im*) 2 mg IM Q4H PRN PRN Reason: AGITATION Last Admin: 05/24/19 20:08 Dose: 2 mg Lorazepam (Ativan Inj*) 1 mg IM Q6H PRN PRN Reason: Anxiety, agitation Methimazole (Tapazole Tab*) 10 mg PO BID [facility] Last Admin: 05/27/19 09:36 Dose: 10 mg Metoprolol Tartrate (Lopressor Iv*) 5 mg IV Q6H PRN PRN Reason: HR > 80 Last Admin: 05/26/19 21:03 Dose: 5 mg Miscellaneous (Ativan Pyxis Herzog) 1 ea N/A .ATIVAN IV HERZOG PRN PRN Reason: PYXIS HERZOG Quetiapine Fumarate (Seroquel Tab*) 25 mg PO BEDTIME [facility] Last Admin: 05/26/19 20:51 Dose: 25 mg Quetiapine Fumarate (Seroquel Tab*) 25 mg PO DAILY PRN PRN Reason: AGITATION Senna (Senokot 8.6 Mg Tab*) 1 tab PO BEDTIME PRN PRN Reason: CONSTIPATION Last Admin: 05/26/19 20:53 Dose: 1 tab
--- NOTE | 2019-05-27 17:59 | PN ---
Subjective Date of Service: 05/27/19 Interval History: Patient was calm when I saw her this morning. She was unable to recall our previous conversation but she was not agitated. No aggressive behaviour seen in the past 3 days, compliant in medication in the past 3 days. Objective Active Medications: Docusate Sodium (Colace Cap*) 100 mg PO DAILY PRN PRN Reason: CONSTIPATION Last Admin: 05/26/19 20:53 Dose: 100 mg Enoxaparin Sodium (Lovenox(*)) 40 mg SUBCUT 1800 [facility] Last Admin: 05/26/19 17:52 Dose: 40 mg Haloperidol Lactate (Haldol Inj Iv/Im*) 2 mg IM Q4H PRN PRN Reason: AGITATION Last Admin: 05/24/19 20:08 Dose: 2 mg Lorazepam (Ativan Inj*) 1 mg IM Q6H PRN PRN Reason: Anxiety, agitation Methimazole (Tapazole Tab*) 10 mg PO BID [facility] Last Admin: 05/27/19 09:36 Dose: 10 mg Metoprolol Tartrate (Lopressor Iv*) 5 mg IV Q6H PRN PRN Reason: HR > 80 Last Admin: 05/26/19 21:03 Dose: 5 mg Miscellaneous (Ativan Pyxis Marmolejo) 1 ea N/A .ATIVAN IV MARMOLEJO PRN PRN Reason: PYXIS MARMOLEJO Quetiapine Fumarate (Seroquel Tab*) 25 mg PO BEDTIME [facility] Last Admin: 05/26/19 20:51 Dose: 25 mg Quetiapine Fumarate (Seroquel Tab*) 25 mg PO DAILY PRN PRN Reason: AGITATION Senna (Senokot 8.6 Mg Tab*) 1 tab PO BEDTIME PRN PRN Reason: CONSTIPATION Last Admin: 05/26/19 20:53 Dose: 1 tab Vital Signs - 8 hr 05/27/19 05/27/19 12:50 15:50 Temperature 98.2 F 98.4 F Pulse Rate 95 101 Respiratory 16 20 Rate Blood Pressure 124/58 132/58 (mmHg) O2 Sat by Pulse 100 100 Oximetry Oxygen Devices in Use Now: None Exam: General - NAD, sitting up in bed, well groomed and in nightgown Eyes - PERRLA, EOM intact HEENT- left thyroid nodule palpated Cardiovascular - RRR no m/r/g, no JVD, no carotid bruits Lungs - Clear to auscltation, no use of acessory muscles, no crackles or wheezes. Skin - No rashes, skin warm and dry, no erythematous areas Abdomen - Normal bowel sounds, abdomen soft and nontender Extremeties - No edema, cyanosis or clubbing Musculo Skeletal - 5/5 strength, normal range of motion, no swollen or erythematous joints. Neurological Alert and oriented x 3, CN 2-12 grossly intact. Psychiatry-calm, not anxious Result Diagrams: 05/21/19 06:40 05/21/19 06:40 Assess/Plan/Problems-Billing Assessment: 73 y/o female with history of advanced dementia, hyperthyroidism not compliant to medication due to paranoid status, admitted for altered mental status due to advanced dementia exacerbated by untreated hyperthyroidism. 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 Jurado and nuclear medicine today, we planned for radioactive iodine ablation on the same day after discharge on morning. (2) Delirium Current Visit: No Status: Acute Code(s): R41.0 - DISORIENTATION, UNSPECIFIED SNOMED Code(s): 2723447 Comment: underlying dementia with hyperthyroidism and depression leading to further delirium still on 1:1 observation for now resolving (3) Dementia Current Visit: No Status: Acute Code(s): F03.90 - UNSPECIFIED DEMENTIA WITHOUT BEHAVIORAL DISTURBANCE SNOMED Code(s): 23355875 Comment: Dementia for years, worsening in the past few years, which lead her to current presentation (4) DVT prophylaxis Current Visit: No Status: Acute Priority: Low Code(s): PEA2354 - SNOMED Code(s): 182970930 Comment: - ambulation (5) Full code status Current Visit: No Status: Acute Code(s): Z78.9 - OTHER SPECIFIED HEALTH STATUS SNOMED Code(s): 966886811 Comment: Status and Disposition: Inpatient medicine. Aim for discharge to nuclear med on morning to get LEMA outpt Attestation Documenting Resident: Louise Byrd Supervising Physician: Javy Tyson Attending/Supervising Physician Comment: Will need LEMA ablation prior returning home. Plan was for outpatient procedure on day of discharge but now insurance may not cover. Attestation: This service has been performed in part by a resident under the direction of a teaching physician.I, Javy Tyson, performed the service, or was physically present during the critical, or marmolejo portions of the service, furnished by the resident. I participated in the management of the patient.
[2019-05-27] MEDS: Enoxaparin(*) 40 MG/0.4 ML SYR SUBCUT SCH (18:21)
[2019-05-27] MEDS: LORazepam INJ* 2 MG/ML 1 ML VIAL IM PRN (20:00)
[2019-05-27] MEDS: QUEtiapine TAB* 100 MG PO SCH (20:01)
[2019-05-28] MEDS: Methimazole TAB* 5 MG PO SCH ×2 (09:34→21:34)
--- NOTE | 2019-05-28 14:20 | PN ---
Subjective Date of Service: 05/28/19 Interval History: Patient had no complain today. Noted patient behaved well with 1:1 observation, but when her came to visit her, she would be more agitated. Objective Active Medications: Docusate Sodium (Colace Cap*) 100 mg PO DAILY PRN PRN Reason: CONSTIPATION Last Admin: 05/26/19 20:53 Dose: 100 mg Enoxaparin Sodium (Lovenox(*)) 40 mg SUBCUT 1800 [facility] Last Admin: 05/27/19 18:21 Dose: Not Given Haloperidol Lactate (Haldol Inj Iv/Im*) 2 mg IM Q4H PRN PRN Reason: AGITATION Last Admin: 05/24/19 20:08 Dose: 2 mg Lorazepam (Ativan Inj*) 1 mg IM Q6H PRN PRN Reason: Anxiety, agitation Last Admin: 05/27/19 20:00 Dose: 1 mg Methimazole (Tapazole Tab*) 10 mg PO BID [facility] Last Admin: 05/28/19 09:34 Dose: 10 mg Metoprolol Tartrate (Lopressor Iv*) 5 mg IV Q6H PRN PRN Reason: HR > 80 Last Admin: 05/26/19 21:03 Dose: 5 mg Miscellaneous (Ativan Pyxis Marmolejo) 1 ea N/A .ATIVAN IV MARMOLEJO PRN PRN Reason: PYXIS MARMOLEJO Quetiapine Fumarate (Seroquel Tab*) 25 mg PO BEDTIME [facility] Last Admin: 05/27/19 20:01 Dose: 25 mg Quetiapine Fumarate (Seroquel Tab*) 25 mg PO DAILY PRN PRN Reason: AGITATION Senna (Senokot 8.6 Mg Tab*) 1 tab PO BEDTIME PRN PRN Reason: CONSTIPATION Last Admin: 05/26/19 20:53 Dose: 1 tab Oxygen Devices in Use Now: None Exam: General - NAD, sitting up in bed Eyes - PERRLA, EOM intact HEENT- left thyroid nodule palpated Cardiovascular - RRR no m/r/g, no JVD, no carotid bruits Lungs - Clear to auscltation, no use of acessory muscles, no crackles or wheezes. Skin - No rashes, skin warm and dry, no erythematous areas Abdomen - Normal bowel sounds, abdomen soft and nontender Extremeties - No edema, cyanosis or clubbing Musculo Skeletal - 5/5 strength, normal range of motion, no swollen or erythematous joints. Neurological Alert and oriented x 3, CN 2-12 grossly intact. Psychiatry-calm, not anxious Result Diagrams: 05/21/19 06:40 05/21/19 06:40 Assess/Plan/Problems-Billing Assessment: 73 y/o female with history of advanced dementia, hyperthyroidism not compliant to medication due to paranoid status, admitted for altered mental status due to advanced dementia exacerbated by untreated hyperthyroidism. 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 (2) Delirium Current Visit: No Status: Acute Code(s): R41.0 - DISORIENTATION, UNSPECIFIED SNOMED Code(s): 9041589 Comment: underlying dementia with hyperthyroidism and depression leading to further delirium still on 1:1 observation for now, consider off if pt continues to stay resolving (3) Dementia Current Visit: No Status: Acute Code(s): F03.90 - UNSPECIFIED DEMENTIA WITHOUT BEHAVIORAL DISTURBANCE SNOMED Code(s): 80548532 Comment: Dementia for years, worsening in the past few years, which lead her to current presentation (4) DVT prophylaxis Current Visit: No Status: Acute Priority: Low Code(s): WOS3886 - SNOMED Code(s): 796370775 Comment: - ambulation (5) Full code status Current Visit: No Status: Acute Code(s): Z78.9 - OTHER SPECIFIED HEALTH STATUS SNOMED Code(s): 196409123 Comment: Status and Disposition: Inpatient medicine. Aim for discharge to nuclear med on to get LEMA outpt. Understand insurance coverage issues for outpt LEMA, will need to talk to multiple people to sort it out. Alternative will be transfer to [facility] for LEMA. Attestation Documenting Resident: Louise Byrd Supervising Physician: Javy Tyson Attending/Supervising Physician Comment: Agree with plan as outlined here unless indicated Plan for discharge to outpatient radioactive ablation tomorrow on day of discharge Attestation: This service has been performed in part by a resident under the direction of a teaching physician.I, Javy Tyson, performed the service, or was physically present during the critical, or marmolejo portions of the service, furnished by the resident. I participated in the management of the patient.
[2019-05-28] MEDS: Enoxaparin(*) 40 MG/0.4 ML SYR SUBCUT SCH (18:20)
[2019-05-28] MEDS: LORazepam INJ* 2 MG/ML 1 ML VIAL IM PRN (20:43)
[2019-05-28] MEDS: Haloperidol INJ IV/IM* 5 MG/ML AMP IM PRN (20:43)
[2019-05-28] MEDS: QUEtiapine TAB* 100 MG PO SCH (21:34)
[2019-05-29 06:42] LABS: Hematocrit 37 % (35-47); Hemoglobin 12.4 g/dL (12.0-16.0); Mean Platelet Volume 7.7 fL (7.4-10.4); Platelet Count 297 10^3/uL (150-450)
[2019-05-29 07:00] LABS: EGFR African American 131.5 (>60); EGFR Non-African American 108.6 (>60)
[2019-05-29] MEDS: Methimazole TAB* 5 MG PO SCH (07:20)
[2019-05-29 07:47] VITALS: BP 102/57
--- NOTE | 2019-05-29 09:16 | PN ---
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 The case has been discussed with nuclear medicine and the patient has been referred for 20mCi radioactive iodine as primary treatment for toxic adenoma(s) at time of discharge. She remains mildly hyperthyroid, but is stable for discharge to home setting with family. I discussed the risks/benefits of LEMA treatment with the patient's , who has decision making capacity for the patient. Verbal assent was obtained, all questions answered. PLAN: - 20mCi I-131 today at time of discharge (signed order sent to nuclear medicine yesterday, 05/28/19) - d/c methimazole - follow-up with endocrinology in 4 weeks SUBJECTIVE: Patient has been more cooperative and orientable this week, with QHS meds only for sleep and agitation. She has taken most methimazole doses offered to her. She remains on 1:1 observation. Docusate Sodium (Colace Cap*) 100 mg PO DAILY PRN PRN Reason: CONSTIPATION Last Admin: 05/26/19 20:53 Dose: 100 mg Enoxaparin Sodium (Lovenox(*)) 40 mg SUBCUT 1800 [facility] Last Admin: 05/28/19 18:20 Dose: Not Given Haloperidol Lactate (Haldol Inj Iv/Im*) 2 mg IM Q4H PRN PRN Reason: AGITATION Last Admin: 05/28/19 20:43 Dose: 2 mg Lorazepam (Ativan Inj*) 1 mg IM Q6H PRN PRN Reason: Anxiety, agitation Last Admin: 05/28/19 20:43 Dose: 1 mg Methimazole (Tapazole Tab*) 10 mg PO BID [facility] Last Admin: 05/29/19 07:20 Dose: 10 mg Metoprolol Tartrate (Lopressor Iv*) 5 mg IV Q6H PRN PRN Reason: HR > 80 Last Admin: 05/26/19 21:03 Dose: 5 mg Miscellaneous (Ativan Pyxis Herzog) 1 ea N/A .ATIVAN IV HERZOG PRN PRN Reason: PYXIS HERZOG Quetiapine Fumarate (Seroquel Tab*) 25 mg PO BEDTIME [facility] Last Admin: 05/28/19 21:34 Dose: Not Given Quetiapine Fumarate (Seroquel Tab*) 25 mg PO DAILY PRN PRN Reason: AGITATION Senna (Senokot 8.6 Mg Tab*) 1 tab PO BEDTIME PRN PRN Reason: CONSTIPATION Last Admin: 05/26/19 20:53 Dose: 1 tab OBJECTIVE: Temp Pulse Resp BP Pulse Ox 97.5 F 75 18 102/57 100 05/29/19 07:34 05/29/19 07:34 05/29/19 07:34 05/29/19 07:34 05/29/19 07:34 GEN: pleasant, alert, NAD, AOx1 CV: borderline tachycardia ENT: no ocular disease, thyroid fullness noted again on L side ABD: benign WBC 4.6 10^3/uL (3.5-10.8) 05/21/19 06:40 RBC 4.16 10^6 /uL (3.70-4.87) 05/21/19 06:40 Hgb 12.4 g/dL (12.0-16.0) 05/29/19 05:57 Hct 37 % (35-47) 05/29/19 05:57 MCV 81 fL (80-97) 05/21/19 06:40 MCH 27 pg (27-31) 05/21/19 06:40 MCHC 34 g/dL (31-36) 05/21/19 06:40 RDW 14 % (10-15) 05/21/19 06:40 Plt Count 297 10^3/uL (150-450) 05/29/19 05:57 MPV 7.7 fL (7.4-10.4) 05/29/19 05:57 Neut % (Auto) 56.6 % 05/21/19 06:40 Lymph % (Auto) 29.6 % 05/21/19 06:40 [place] % (Auto) 11.9 % 05/21/19 06:40 Eos % (Auto) 1.7 % 05/21/19 06:40 Baso % (Auto) 0.2 % 05/21/19 06:40 Absolute Neuts (auto) 2.6 10^3/ul (1.5-7.7) 05/21/19 06:40 Absolute Lymphs (auto) 1.4 10^3/ul (1.0-4.8) 05/21/19 06:40 Absolute Monos (auto) 0.6 10^3/ul (0-0.8) 05/21/19 06:40 Absolute Eos (auto) 0.1 10^3/ul (0-0.6) 05/21/19 06:40 Absolute Basos (auto) 0.0 10^3/ul (0-0.2) 05/21/19 06:40 Absolute Nucleated RBC 0.0 10^3/ul 05/21/19 06:40 Nucleated RBC % 0.2 05/21/19 06:40 Sodium 144 mmol/L (135-145) 05/21/19 06:40 Potassium 3.5 mmol/L (3.5-5.0) 05/21/19 06:40 Chloride 111 mmol/L (101-111) 05/21/19 06:40 Carbon Dioxide 29 mmol/L (22-32) 05/21/19 06:40 Anion Gap 4 mmol/L (2-11) 05/21/19 06:40 BUN 24 mg/dL (6-24) 05/21/19 06:40 Creatinine 0.55 mg/dL (0.51-0.95) 05/29/19 05:57 Est GFR ( Amer) 131.5 (>60) 05/29/19 05:57 Est GFR (Non-Af Amer) 108.6 (>60) 05/29/19 05:57 BUN/Creatinine Ratio 50.0 (8-20) H 05/21/19 06:40 Glucose 102 mg/dL (70-100) H 05/21/19 06:40 Lactic Acid 0.9 mmol/L (0.5-2.0) 05/20/19 06:55 Calcium 9.1 mg/dL (8.6-10.3) 05/21/19 06:40 Total Bilirubin 1.40 mg/dL (0.2-1.0) H 05/20/19 06:55 AST 15 U/L (13-39) 05/20/19 06:55 ALT 13 U/L (7-52) 05/20/19 06:55 Alkaline Phosphatase 110 U/L (34-104) H 05/20/19 06:55 Troponin I 0.00 ng/mL (<0.04) 05/20/19 06:55 Total Protein 6.4 g/dL (6.4-8.9) 05/20/19 06:55 Albumin 3.9 g/dL (3.2-5.2) 05/20/19 06:55 Globulin 2.5 g/dL (2-4) 05/20/19 06:55 Albumin/Globulin Ratio 1.6 (1-3) 05/20/19 06:55 TSH 0.00 mcIU/mL (0.34-5.60) L 05/20/19 06:55 Free T4 3.45 ng/dL (0.61-1.12) H 05/20/19 06:55 Free T3 9.60 pg/mL (2.5-3.9) H 05/20/19 06:55
--- NOTE | 2019-05-29 21:20 | DS ---
DISCHARGE SUMMARY/ADMISSION HISTORY AND PHYSICAL: DATE OF ADMISSION: 05/20/19 DATE OF DISCHARGE: 05/29/19 DISPOSITION AT DISCHARGE: Home. CONDITION ON DISCHARGE: Stable. PRIMARY DIAGNOSIS: Thyrotoxicosis. SECONDARY DIAGNOSES: Include: 1. Alzheimer's disease. 2. Thyroid nodule. MEDICATIONS AT DISCHARGE: Included: 1. Haldol 1 mg twice daily as needed. 2. Docusate 100 mg daily as needed. 3. Lorazepam 1 mg every 6 hours as needed. 4. Seroquel 25 mg in the morning and 25 mg p.r.n. at bedtime. HISTORY OF PRESENT ILLNESS AND HOSPITAL COURSE: This is a 73-year-old female with past medical history of hyperthyroidism and dementia who presented to the hospital after found wandering in the streets, found with absent thyroid levels , TSH is 0, free T4 elevated at 3.37 and free T3 of 9.6 consistent with thyrotoxicosis. The patient was admitted to the hospital. Consultations were made with Endocrine as well as Endocrine Surgery. Decision was not to pursue thyroidectomy as the risk of hypothyroidism was quite high and I was concerned that the patient will continue to not to take her medications at home leading to myxedema coma. Ultimate decision was made to pursue radioactive iodine ablation of the thyroid; however, this procedure cannot be performed as an inpatient. Discussions were undertaken with regarding decision to perform this as an outpatient and return home with the patient. There was ample concern from the nursing staff as well as this provider that the would be ill-equipped to handle the patient's behavior at home as he had struggled in the past over many years. The patient's was adamant that he wanted to try to manage her at home after radioactive iodine ablation in hopes that her behavior would be better after the procedure. There was discussion that she does have underlying dementia and this would not impact that , but only most recent episode of thyrotoxicosis might better be controlled, but not immediately. The patient's underwent a capacity evaluation by this author and deemed to have capacity to make the decision at the time of participating in her discharge planning and so the patient proceeded to be discharged, received radioactive iodine ablation and return home. Upon returning home, the patient's contacted his [id number]-ey-kqr and indicated that he had been forced out of the hospital by a [facility] doctor and that he was leaving the house. At which time, I had been in communication with the patient's ricyrqma-al-ejw regarding her care throughout the day and she ultimately returned to the emergency room today to be further outlined in today's history of present illness. The patient did receive an Ethics consultation during the course of hospital stay to evaluate ability to deliver a thyroidectomy against her wishes. Ethics consult did decide with the to proceed with the procedure, although this procedure was not pursued as indicated above in preference of radioactive iodine ablation for a lower risk of hypothyroidism should the patient not take her medicine again. TIME SPENT: Greater than 45 minutes were spent on discharge of this patient, of which greater than half was spent vfcq-uc-ayyy with the patient and her . [id number]/[facility] #: [id number] LAUREANO
== END 2019-05-29 10:30 | disposition home health service (06) | DRG 644 ==
LOC: ED 05:56 → MEDTELE 10:03
PROVIDERS: ADMIT Internal Medicine; ATTEND Internal Medicine
DX: E05.90 Thyrotoxicosis, unspecified without thyrotoxic crisis or storm (principal); F02.81 Dementia in other diseases classified elsewhere, unspecified severity, with behavioral disturbance; F05 Delirium due to known physiological condition; E04.1 Nontoxic single thyroid nodule; G30.9 Alzheimer's disease, unspecified; Z91.83 Wandering in diseases classified elsewhere; Z87.891 Personal history of nicotine dependence; Z82.0 Family history of epilepsy and other diseases of the nervous system; Z91.14 Patient's other noncompliance with medication regimen; Z79.899 Other long term (current) drug therapy
CPT/HCPCS: 36415; 71045; 76536; 80048; 80053; 82565; 83605; 84439; 84443; 84481; 84484; 85014; 85018; 85025; 85049; 93005; 99284; A9270-GY; J1630; J1650; J2060; J3490

== ENCOUNTER 2019-05-29 16:04 | Inpatient (IN) | payer MEDICARE ==
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
[2019-05-29 16:47] LABS: ABS Monocytes 0.5 10^3/ul (0-0.8); ABS Neutrophils 2.5 10^3/ul (1.5-7.7); Eosinophil % 0.6 %; Hematocrit 39 % (35-47); Hemoglobin 12.8 g/dL (12.0-16.0); Lymphocyte % 24.1 %; Mean Corpuscular HGB Conc 33 g/dL (31-36); Mean Corpuscular Hemoglobin 26 pg (27-31); Mean Corpuscular Volume 80 fL (80-97); Mean Platelet Volume 7.5 fL (7.4-10.4); Nucleated Red Blood Cells % 0.1; Platelet Count 322 10^3/uL (150-450); Red Blood Count 4.85 10^6 /uL (3.70-4.87); Red Cell Distribution Width 14 % (10-15); White Blood Count 4.2 10^3/uL (3.5-10.8)
[2019-05-29 17:04] LABS: Albumin/Globulin Ratio 1.5 (1-3); BUN/Creatinine Ratio 28.3 (8-20); Calcium 9.6 mg/dL (8.6-10.3); EGFR African American 118.9 (>60); EGFR Non-African American 98.3 (>60); Globulin 2.7 g/dL (2-4); Potassium 3.7 mmol/L (3.5-5.0); Total Bilirubin 0.9 mg/dL (0.2-1.0); Total Protein 6.7 g/dL (6.4-8.9)
[2019-05-29 17:06] LABS: Troponin I 0.01 ng/mL (<0.04)
[2019-05-29 17:38] LABS: Free T4 0.7 ng/dL (0.61-1.12)
[2019-05-29] MEDS ORDERED: QUEtiapine TAB* 25 MG PO PRN (17:42)
[2019-05-29] MEDS ORDERED: Docusate CAP* 100 MG PO PRN (17:42)
[2019-05-29] MEDS ORDERED: Lorazepam PYXIS KEY PRN (17:43)
[2019-05-29] MEDS: QUEtiapine TAB* 25 MG PO SCH ×2 (18:17→20:18)
[2019-05-29] MEDS: Enoxaparin(*) 40 MG/0.4 ML SYR SUBCUT SCH (18:19)
--- NOTE | 2019-05-29 20:05 | HP ---
CC: Dr. Sampson; Dr. Jurado* ADMISSION HISTORY AND PHYSICAL: DATE OF ADMISSION: 05/29/19 HISTORY OF PRESENT ILLNESS: This is a 73-year-old female with recent hospital stay, discharged earlier today after presenting with thyrotoxicosis, medical history is also significant for dementia, presented to the hospital today after being discharged home after receiving radioactive iodine ablation of her thyroid from previous hospital stay. Extensive conversations were had with the patient's healthcare proxy, her , regarding his desire to care for her at home which was his preference against our wishes for her to pursue long-term care in another facility. I had multiple conversations with the patient's vugxtfpf-mf-qfu after discharge and upon returning home, the patient's indicated that he had been forced out of the hospital, this was not his decision , did not want to care for her at home and he left her at home with his daughter -in-law. The patient became altered at home, was wearing multiple pairs of clothes and socks and ultimately combative with a pair of scissors and so was returned to the hospital with the chief diagnosis of altered mental status potentially in the setting of not taking her medications at home, which have been delivered to her during the hospital stay. Of note, her medications including Haldol and lorazepam have not been received from the pharmacy after they were prescribed on discharge. I had a conversation at length in the presence of the cvoqkbdt-rh-ewj as well as the that admission to this hospital for altered mental status likely in the setting of medication nonadherence after the radioactive iodine ablation and that I believe that she will best be served at a long-term care facility and I myself or another provider would be unlikely to honor the 's another decision and be unlikely to participate in discharge planning as his previous decision the same day was to return home and he reneged on his desire to care for the patient after returning home shortly upon discharge. The patient is now returning to the hospital after receiving radioactive iodine ablation of her thyroid and will have special precautions for contact in the first 48 hours to be further delineated below. PAST MEDICAL HISTORY: Includes hyperthyroidism, history of thyrotoxicosis and delirium, previous hospital stay in February and also May of this year. PAST SURGICAL HISTORY: Right knee. HOME MEDICATIONS: 1. Ativan 1 mg every 6 hours. 2. Haldol 2 mg every 4 hours p.r.n. 3. Seroquel 25 mg in the morning and 25 mg at bedtime p.r.n. ALLERGIES: No known drug allergies. FAMILY HISTORY: Significant for Alzheimer's disease. SOCIAL HISTORY: Former smoker. Lives at home with her . No alcohol. The patient's mwbcoydr-db-jdz is only other remaining family that has been quite participatory in the care of this patient and will likely serve as a default healthcare proxy at this point. REVIEW OF SYSTEMS: Unable to obtain. PHYSICAL EXAMINATION GENERAL: This is a 73-year-old female, looks stated age, sitting up in bed, interacts. VITAL SIGNS: Blood pressure 119/70, heart rate is 80, respiratory rate is 16, T - max 98.3. HEENT: Oropharynx is clear. She has moist mucous membranes. LUNGS: Clear. HEART: She has regular rate and rhythm. ABDOMEN: Soft. EXTREMITIES: Warm and well perfused. NEUROLOGIC: She is alert and oriented x1 to herself, but not hospital or year. She frequently argues with her , is tangential and not goal directed. At this point, she is not demonstrating any anxiety or agitation. LABORATORY DATA: Labs reviewed, notable for TSH of 0.0 and free T4 of 0.70. ASSESSMENT AND PLAN: This is a 73-year-old female with recent radioactive thyroid ablation at around 10 a.m. this morning in the setting of thyrotoxicosis , returns to the hospital with continued altered mental status. 1. Altered mental status. Combination of underlying dementia as well as medication nonadherence after returning home. The patient will be admitted to the hospital. Continue her Seroquel which has afforded her great control of her mood as well as p.r.n. Ativan and Haldol as needed as indicated above. They will have significant attention made to placing the patient in a long-term care facility where she can have assistance with administering her medications should she return to her baseline after receiving her medications here. There is no evidence of infection or underlying intracranial abnormalities leading to this change since her discharge. 2. Contact precautions. The patient did receive the radioisotope this morning and therefore has 48 hours of special precautions. I had detailed these precautions with numerous nurses including charge nurse and house supervisors and is aligned here today. They should have limited contact. The patient should remain in her room. There is minimal danger unless they are within 3 feet of the patient, which is still safe unless for prolonged periods of time, most notably for children when they sit in the patient's lab which is not an issue in this hospital. Of particular importance is after the patient uses the bathroom, it should be flushed 3 times. She cannot return utensils to nutrition and dining and so I have requested that all disposable forks, knives, plates be used for this patient. If there are any spills of urine or other bodily fluids, the materials used to clean either saliva, spit, urine or blood needs to be bagged and disposed off as hazardous material. I have discussed at length with the nuclear technician and they remain on-call overnight as well. 3. DVT prophylaxis: Enoxaparin. [id number]/[facility] #: [id number] LAUREANO
[2019-05-29] MEDS: LORazepam INJ* 2 MG/ML 1 ML VIAL IV PUSH PRN (20:15)
[2019-05-29] MEDS: Haloperidol INJ IV/IM* 5 MG/ML AMP IV SLOW PU PRN (20:45)
[2019-05-30] MEDS: LORazepam INJ* 2 MG/ML 1 ML VIAL IV PUSH PRN (06:31)
[2019-05-30] MEDS: Haloperidol INJ IV/IM* 5 MG/ML AMP IV SLOW PU PRN (06:59)
[2019-05-30] MEDS ORDERED: Methimazole TAB* 5 MG PO SCH (09:00)
[2019-05-30] MEDS: QUEtiapine TAB* 25 MG PO SCH ×3 (10:09→21:42)
[2019-05-30] MEDS: Enoxaparin(*) 40 MG/0.4 ML SYR SUBCUT SCH (16:02)
--- NOTE | 2019-05-30 17:15 | PN ---
Subjective Date of Service: 05/30/19 Interval History: No overnight events, no complain today. Objective Active Medications: Docusate Sodium (Colace Cap*) 100 mg PO DAILY PRN PRN Reason: CONSTIPATION Enoxaparin Sodium (Lovenox(*)) 40 mg SUBCUT Q24H [facility] Last Admin: 05/30/19 16:02 Dose: Not Given Haloperidol Lactate (Haldol Inj Iv/Im*) 2 mg IV SLOW PU Q4H PRN PRN Reason: AGITATION Last Admin: 05/30/19 06:59 Dose: 2 mg Lorazepam (Ativan Inj*) 1 mg IV PUSH Q4H PRN PRN Reason: AGITATION Last Admin: 05/30/19 06:31 Dose: 1 mg Miscellaneous (Ativan Pyxis Marmolejo) 1 ea N/A .ATIVAN IV MARMOLEJO PRN PRN Reason: PYXIS MARMOLEJO Quetiapine Fumarate (Seroquel Tab*) 25 mg PO BEDTIME [facility] Last Admin: 05/29/19 20:18 Dose: Not Given Quetiapine Fumarate (Seroquel Tab*) 25 mg PO DAILY [facility] Last Admin: 05/30/19 10:19 Dose: 25 mg Oxygen Devices in Use Now: None Exam: General - NAD, sitting comfortably Eyes - PERRLA, EOM intact HEENT- no abnormality Cardiovascular - RRR no m/r/g, no JVD, no carotid bruits Lungs - Clear to auscltation, no use of acessory muscles, no crackles or wheezes. Skin - No rashes, skin warm and dry, no erythematous areas Abdomen - Normal bowel sounds, abdomen soft and nontender Extremeties - No edema, cyanosis or clubbing Musculo Skeletal - 5/5 strength, normal range of motion, no swollen or erythematous joints. Neurological Alert and oriented x 3, CN 2-12 grossly intact. Psychiatry-mood stable Result Diagrams: 05/29/19 16:32 05/29/19 16:32 Assess/Plan/Problems-Billing Assessment: - Patient Problems (1) Altered mental status Current Visit: Yes Status: Acute Code(s): R41.82 - ALTERED MENTAL STATUS, UNSPECIFIED SNOMED Code(s): 560392170 Comment: underlying dementia with hyperthyroidism and depression leading to further delirium on 1:1 observation for now iv haloperidol, ativan when needed (2) Dementia Current Visit: No Status: Acute Code(s): F03.90 - UNSPECIFIED DEMENTIA WITHOUT BEHAVIORAL DISTURBANCE SNOMED Code(s): 40632810 Comment: Dementia for years, worsening in the past few years, which lead her to current presentation (3) Hyperthyroidism Current Visit: No Status: Acute Code(s): E05.90 - THYROTOXICOSIS, UNSP WITHOUT THYROTOXIC CRISIS OR STORM SNOMED Code(s): 35932854 Comment: LEMA done 05/29/2019 Status and Disposition: Disposition Problem, patient needs a facility placement. Attestation Documenting Resident: Louise Byrd Supervising Physician: Javy Tyson Attending/Supervising Physician Comment: Agree with plan as outlined in note from Dr. Byrd unless noted here. Readmitted after AMS at home after [place] [facility] [place] of thyroid Suspect change in mental status linked to medication on compliance after discharge (would not take haldol or ativan) Dementia stable, mood is placid. Patient has not required sedation or restraints to stay in room since admission. Needs isolation until tomorrow 10 AM (48 hrs after LEMA ablation) See admission note for specifics regarding isolation and special precautions There is a nuc med tech asw/asuw tactical air controller should specific questions arise overnight that cannot be answer by the covering physician Attestation: This service has been performed in part by a resident under the direction of a teaching physician.I, Javy Tyson, performed the service, or was physically present during the critical, or marmolejo portions of the service, furnished by the resident. I participated in the management of the patient.
[2019-05-31] MEDS ORDERED: QUEtiapine TAB* 25 MG PO PRN (08:24)
[2019-05-31] MEDS: QUEtiapine TAB* 25 MG PO SCH (10:59)
--- NOTE | 2019-05-31 18:05 | PN ---
Subjective Date of Service: 05/31/19 Interval History: No events stayed in room overnight no aggressive behavior No longer needs special precautions for radiation s/p outpatient thyroid ablation Objective Active Medications: Docusate Sodium (Colace Cap*) 100 mg PO DAILY PRN PRN Reason: CONSTIPATION Enoxaparin Sodium (Lovenox(*)) 40 mg SUBCUT Q24H [facility] Last Admin: 05/30/19 16:02 Dose: Not Given Haloperidol Lactate (Haldol Inj Iv/Im*) 2 mg IV SLOW PU Q4H PRN PRN Reason: AGITATION Last Admin: 05/30/19 06:59 Dose: 2 mg Lorazepam (Ativan Inj*) 1 mg IV PUSH Q4H PRN PRN Reason: AGITATION Last Admin: 05/30/19 06:31 Dose: 1 mg Miscellaneous (Ativan Pyxis Herzog) 1 ea N/A .ATIVAN IV HERZOG PRN PRN Reason: PYXIS HERZOG Quetiapine Fumarate (Seroquel Tab*) 25 mg PO DAILY [facility] Last Admin: 05/31/19 10:59 Dose: 25 mg Quetiapine Fumarate (Seroquel Tab*) 25 mg PO BEDTIME PRN PRN Reason: AGITATION Vital Signs - 8 hr 05/31/19 14:32 Temperature 99 F Pulse Rate 101 Respiratory 16 Rate Blood Pressure 111/62 (mmHg) O2 Sat by Pulse 100 Oximetry Oxygen Devices in Use Now: None Appearance: NAD, watching TV Eyes: No Scleral Icterus Ears/Nose/Mouth/Throat: NL Teeth, Lips, Gums, Clear Oropharnyx Neck: NL Appearance and Movements; NL JVP Respiratory: Symmetrical Chest Expansion and Respiratory Effort, Clear to Auscultation Cardiovascular: NL Sounds; No Murmurs; No JVD, RRR Abdominal: NL Sounds; No Tenderness; No Distention Lymphatic: No Cervical Adenopathy Extremities: No Edema Neurological: - - AOx1 to self, she was able to say we were in a hospital with some prompting Result Diagrams: 05/29/19 16:32 05/29/19 16:32 Assess/Plan/Problems-Billing Assessment: 73 yo F h/o dementia, presented to the hospital with AMS originally in the setting of thyrotoxicosis discharged to receive outpatient radioactive thyroid ablation however after returning home would not take medications including seroquel or ativan and returned the same day admitted with AMS now transitioned to [facility] care in need of exterminator termite placement - Patient Problems (1) Altered mental status Comment: underlying dementia with hyperthyroidism and depression leading to further delirium Off 1:1 observation iv haloperidol, ativan when needed (2) Dementia Comment: Dementia for years, worsening in the past few years, which lead her to current presentation seroquel standing in the AM changed to PRN at night given increased sleepiness today 9.7.19 (can change back to standing if needed) (3) Hyperthyroidism Comment: LEMA done 05/29/2019 no longer needs special precautions will need endo follow up off methimazole increased risk for hypothyroidism s/p ablation Status and Disposition: Snf Patient will need exterminator termite placement Long discussion with who wanted to take patient home originally however left her elisabeth same day they returned home and told daughter in law that he was forced to take her home and didnt want to care for her. I suspect he has worse underlying dementia then was previously appreciated. I discussed with daughter in law and that if he should change his mind and want to take her home we may not be able to honor his preference since he was unable to care for her immediately upon discharge (the same day) on her last discharge
[2019-05-31] MEDS: Enoxaparin(*) 40 MG/0.4 ML SYR SUBCUT SCH (19:22)
[2019-06-01] MEDS: QUEtiapine TAB* 25 MG PO SCH ×2 (07:36→22:09)
[2019-06-01] MEDS: Haloperidol INJ IV/IM* 5 MG/ML AMP IV SLOW PU PRN (12:16)
[2019-06-01] MEDS: Enoxaparin(*) 40 MG/0.4 ML SYR SUBCUT SCH (17:14)
--- NOTE | 2019-06-02 07:43 | PN ---
Hospitalist Progress Note Date of Service: 06/02/19 HD 5 on 06/02 Pt now in custoidal care Overnight no acute event, VSS This morning seen eating breakfast pleasantly demented with no complaints of pain SOB confusion, AOx1 PE AOx1 eating breakfast moving all 4 limbs fine eye contact A/P 73F PMH dementia, presented to the hospital with AMS originally in the setting of thyrotoxicosis discharged to receive outpatient radioactive thyroid ablation however after returning home would not take medications including seroquel or ativan and returned the same day admitted with AMS now transitioned to long-term care in need of watermelon harvesting supervisor placement #AMS: Multifactorial underlying dementia with hyperthyroidism and depression leading to further delirium iv haloperidol, ativan when needed, on PRN seroqeul #Dementia: See above - seroquel standing in the AM - changed to PRN at night given increased sleepiness today 05.31.19 (can change back to standing if needed) #Hyperthyroidism LEMA done 05/29/2019 no longer needs special precautions off methimazole increased risk for hypothyroidism s/p ablation [facility] Patient will need watermelon harvesting supervisor placement Appreciate Dr. Tyson---"Long discussion with who wanted to take patient home originally however left her the same day they returned home and told daughter in law that he was forced to take her home and didnt want to care for her. I suspect he has worse underlying dementia then was previously appreciated. I discussed with daughter in law and that if he should change his mind and want to take her home we may not be able to honor his preference since he was unable to care for her immediately upon discharge (the same day) on her last discharge"
[2019-06-02] MEDS: QUEtiapine TAB* 25 MG PO SCH ×2 (08:06→19:39)
[2019-06-02] MEDS ORDERED: LORazepam TAB(*) 1 MG PO PRN (13:55)
[2019-06-02] MEDS ORDERED: Haloperidol TAB* 1 MG PO PRN (13:55)
--- NOTE | 2019-06-02 15:09 | DS ---
CC: Dr. Kun Sampson; Dr. Jurado * DISCHARGE SUMMARY: DATE OF ADMISSION: 05/29/19 DATE OF DISCHARGE: 06/03/19 PRIMARY CARE PROVIDER: Dr. Kun Sampson and Dr. Jurado. DISPOSITION AT THE TIME OF DISCHARGE: Stable for discharge to a prison facility where the patient will reside secondary to dementia and behavioral disturbance. PRIMARY DIAGNOSIS: Altered mental status with dementia advanced and behavioral disturbances. SECONDARY DIAGNOSES: 1. Hyperthyroidism, status post recent radio-iodine ablation on 05/29/19. 2. History of hyperthyroidism with thyrotoxicosis and delirium with numerous hospital stays in the past year for above complicating her behavioral complications with underlying dementia. MEDICATIONS AT TIME OF DISCHARGE: 1. Ativan 1 mg p.o. q.6 hours, MDD 4, as needed for agitation. 2. Haldol 2 mg q.4 hours p.r.n. as needed for agitation. 3. Seroquel 25 mg p.o. q.a.m. and p.o. q.h.s. standing. Medication changes at this time of hospitalization include none. HISTORY OF PRESENT ILLNESS AND HOSPITAL COURSE: A 73-year-old female with history of dementia and thyrotoxicosis with 2 prior hospitalizations in 2019 for thyrotoxicosis and delirium who presented back to the emergency room on 02/09 after receiving radioactive iodine ablation of her thyroid, and postprocedure patient with significant behavioral complications, refusing to take medications, and family returning to the ED for further guidance. Numerous conversations were held with healthcare proxy, the patient's , regarding his desire to care for her in the home which initially was his preference in prior hospitalizations both in February and May 2019. The patient's as well as eqorafub-li-xnj found that her behaviors were too difficult to manage in the home and that she was ultimately not safe there. Her aaggytun-zt-icm as well as the patient's felt that long-term care facility would be needed ultimately for her decline from a dementia status, which was undoubtedly exacerbated by her delirium from a thyrotoxicosis state. The patient was unable and unwilling to take medications at home secondary to her paranoia and thus was admitted for stabilization as well as place to retirement status for long-term care placement for safety concerns in the home. Her hospital course by problem is as follows: 1. Altered mental status. This is in the setting of underlying dementia with behavioral disturbance. The patient was started on Seroquel twice a day, took medications well, had minor agitation particularly in the evening consistent with sundowning behaviors, responded well to as needed Ativan or Haldol. EKGs were done on 05/31/19 and QTc was noted to be 426. The patient responds to Ativan 1 mg oral before haloperidol for agitation and medications regarding behavior can be changed per protocol of receiving long-term care facility. 2. Thyrotoxicosis and delirium. The patient has had hyperthyroid state for some period of time and has declined definitive management. Ultimately, she underwent radioactive ablation on 05/30/19 with under special precautions for 48 hours, although these were discontinued by the time of discharge. The patient will need subsequent TSH monitoring by primary care provider as per outlined in items to follow up on status post discharge to determine when the correct time to start levothyroxine is if needed in the future. 3. Underlying dementia. The patient has had longstanding dementia with decline in behaviors exacerbated likely by her hyperthyroidism state. Standing Seroquel was started and p.r.n. are outlined as per above. 4. DVT prophylaxis. The patient was placed on enoxaparin. 5. Code status, discussed with family, was full on this admission, although ongoing code discussion should be held with the patient's and daughter- in- law. Ultimately on day of discharge, the patient is tolerating diet, voiding, and ambulating freely. She is redirectable with her behaviors. In terms of agitation, she responds to Ativan oral as well as Haldol oral. Would opt for Ativan first with a maximum daily dose of 4. She may need higher doses, which can be titrated by staff at accepting facility. LABS AND STUDIES DONE DURING THIS HOSPITALIZATION: On 05/29/19, white blood cell count 4.2, hemoglobin 12.8, hematocrit 39, platelets 322. BMP shows sodium 140, potassium 3.7, chloride 105, carbon dioxide 27, BUN 17, creatinine 0.6, glucose 120, lactic acid 0.8. AST 24, ALT 15, alk phos 98. TSH 0, free T4 of 0.7. Troponin 0.01. EKG showed sinus tachycardia with atrial premature complexes with no signs of ischemia and a QTc of 427. No other imaging was done during this hospitalization. ITEMS TO FOLLOW UP ON STATUS POST DISCHARGE: 1. Dementia again with behavioral disturbances, started on atypical antipsychotics with p.r.n. oral breakthrough for agitation. This could be titrated by facility as well as primary care provider as needed. 2. Hyperthyroidism. LEMA was done on 05/29/19. She is currently off methimazole and she is at increased risk for hypothyroidism status post ablation and repeat TSH should be done 6 to 8 weeks status post ablation and can be done by primary care provider and discretion to start levothyroxine if needed. Ultimately, plan of care discussed with the patient's family, with care coordination team, who elect for long-term care placement and accepted for patient at [facility]. No further questions by family were had in this difficult situation, numerous goals of care discussion as well as realistic plan of cares were done with this patient's family over the course of this hospitalization. TIME SPENT: Forty minutes was spent on planning this discharge, with over half of that spent directly at the bedside of the patient providing direct patient care. If there are any questions about the care of this patient during this hospitalization, please do not hesitate to reach out and contact us directly. DISPOSITION AT THE TIME OF DISCHARGE: The patient is stable for discharge to prison facility as per their protocols. Please contact this hospitalist directly, cell phone is [phone] if there are any questions about Denise Huggins's care during her hospital stay from 05/29 to 06/02/19. [id number]/[facility] #: [id number] MTDD
[2019-06-02] MEDS: Enoxaparin(*) 40 MG/0.4 ML SYR SUBCUT SCH (17:47)
[2019-06-02] MEDS: Haloperidol TAB* 2 MG PO PRN (19:39)
[2019-06-03] MEDS: Haloperidol TAB* 2 MG PO PRN (09:00)
[2019-06-03] MEDS: QUEtiapine TAB* 25 MG PO SCH (09:00)
[2019-06-03 10:51] VITALS: BP 131/73
== END 2019-06-03 14:45 | DRG 884 ==
LOC: ED 16:04 → MED 17:34 → INTOOBSV 17:34 → MED 05-31 14:49 → OBSVTOIN 05-31 16:36
PROVIDERS: ADMIT Internal Medicine; ATTEND Internal Medicine
DX: F03.91 Unspecified dementia, unspecified severity, with behavioral disturbance (principal); F05 Delirium due to known physiological condition; E05.90 Thyrotoxicosis, unspecified without thyrotoxic crisis or storm; Z75.1 Person awaiting admission to adequate facility elsewhere; Z91.14 Patient's other noncompliance with medication regimen; Z79.899 Other long term (current) drug therapy; Z82.0 Family history of epilepsy and other diseases of the nervous system; Z87.891 Personal history of nicotine dependence
CPT/HCPCS: 36415; 80053; 83605; 84439; 84443; 84484; 85025; 93005; 99284; A9270-GY; G0378; J1630; J1650; J2060